=== PATIENT | male | born 1955 | race Caucasian/White ===

== ENCOUNTER 2019-12-26 19:40 | Emergency (ER) | payer MEDICARE, SELFPAY ==
[2019-12-26 20:06] VITALS: BP 166/71; PULSE 71; RESP 16; TEMP 37; O2SAT 97; BMI 24.7
[2019-12-26 21:47] LABS: Basophils % 0.4 %; Eosinophils # 0.2 10^3/uL (0.0-0.8); Hematocrit 45.1 % (42.0-52.0); Hemoglobin 15.2 g/dL (11.7-16.6); Lymphocytes # 2.4 10^3/uL (0.8-4.8); Lymphocytes % 26.5 %; Mean Corpuscular HGB Conc 33.7 g/dL (30.0-36.0); Mean Corpuscular Hemoglobin 29.5 pg (28.0-34.0); Mean Corpuscular Volume 87.6 fL (80-94); Mean Platelet Volume 11.1 fL (7.4-10.4); Monocytes # 0.9 10^3/uL (0.2-0.9); Monocytes % 9.9 %; Neutrophils # 5.6 10^3/uL (1.8-7.7); Nucleated Red Blood Cells % 0 %; Platelet Count 219 10^3/cmm (130-400); Red Blood Count 5.15 10^6/uL (4.1-5.3); Red Cell Distribution Width 12.6 % (12.1-15.1); White Blood Count 9.1 10^3/uL (4.0-10.0)
[2019-12-26 22:05] LABS: Alanine Aminotransferase 19 U/L (0-41); Albumin Level 4.6 g/dL (3.5-5.2); Alkaline Phosphatase 99 IU/L (40-130); Anion Gap 17.1 (5-19); Aspartate Amino Transferase 21 U/L (0-40); Blood Urea Nitrogen 14 mg/dL (8-23); Calcium 9.9 mg/dL (8.5-10.5); Carbon Dioxide 26 mmol/L (22-29); Chloride 98 mmol/L (98-107); Globulin 3.2 g/dL (1.3-4.6); Glomerular Filtration Rate 67.8 mL/min (90-130); Glucose 122 mg/dL (65-115); Potassium 4.1 mmol/L (3.5-5.1); Sodium 137 mmol/L (136-145); Total Bilirubin 0.3 mg/dL (0.15-1.2); Total Protein 7.8 g/dL (6.6-8.7)
== END 2019-12-26 21:25 | disposition home or self-care (01) ==
PROVIDERS: Nurse Practitioner Family; Emergency Provider Family Medicine; Family Provider Nurse Practitioner Family
DX: R19.5 Other fecal abnormalities (principal); R10.9 Unspecified abdominal pain; Z53.21 Procedure and treatment not carried out due to patient leaving prior to being seen by health care provider
CPT/HCPCS: 80053; 85025; 99281; 99282

== ENCOUNTER → 2020-01-14 10:05 | Outpatient (BNVA) | payer MEDICARE, SELFPAY | PROVIDERS: Family Provider Nurse Practitioner Family; Visit Provider Nurse Practitioner Family | DX: Z87.898 Personal history of other specified conditions (principal); K52.9 Noninfective gastroenteritis and colitis, unspecified; R97.20 Elevated prostate specific antigen [PSA]; Z85.46 Personal history of malignant neoplasm of prostate | CPT/HCPCS: G0103 ==

== ENCOUNTER 2020-01-28 06:23 | Day surgery (SDC) | payer MEDICARE, SELFPAY ==
[2020-01-27 09:49] VITALS: BMI 24.7
[2020-01-28 06:49] VITALS: BP 128/79; PULSE 71; RESP 18; TEMP 36.5; O2SAT 94
[2020-01-28] MEDS: sodium chloride 0.9% 1,000 ML 30 ML (06:52)
--- NOTE | 2020-01-28 07:08 | ANES.PREANE2 ---
Pre-Anesthetic Assessment Pre-Anesthetic Assessment: Height/Weight: Height 1.7 m Weight 71.668 kg Temp Pulse Resp BP Pulse Ox 97.7 F 71 18 128/79 94 01/28/20 06:49 01/28/20 06:49 01/28/20 06:49 01/28/20 06:49 01/28/20 06:49 Preop Diagnosis: Stricture descending colon/abnormal CT Proposed Procedure: Operation Date: 01/28/20 08:00 Proposed Procedures p Colonoscopy 93266 K63.9(Not Applicable) - Tono Tello MD Familial anesthetic complications: denies Was Beta Miguel Angel taken within 24 hours: N/A Last intake: Intake Last Liquid Date 01/28/20 Last Liquid Time 05:00 Last Solid Date 01/27/20 Last Solid Time 12:00 Last Intake: 05:30 (black coffee) Social: Social History: Tobacco (1.5 ppd) Exam: Pre-Anes Outpt Exam: alert, oriented x 3, clear to auscultation bilaterally and regular rate & rhythm Airway: Submandibular: WNL Cervical ROM: WNL MP: 2 Dentition: False History/ROS: No significant history except as noted Pulmonary: Pulmonary: None reported CV/HEM: CV/HEM: None reported : : None reported Hepatic: Hepatic: None reported GI: GI: None reported Metabolic: Metabolic: Hyperlipidemia Musc/skel: Musc/skel: None reported Neuropsych: Neuropsych: None reported Anesthetic Plan: ASA status: 2 Anesthesia: Anesthesia Evaluation and MAC Risk of > 500 ml blood loss (7ml/kg in children): No PFSH Anesthesia PFSH: Social History Smoking and tobacco status: current every day smoker Data Anesthesia Cardiac Studies: No Data to Display
[2020-01-28 09:53] VITALS: BP 108/71; PULSE 60; RESP 16; TEMP 36.7; O2SAT 97
--- NOTE | 2020-01-28 09:57 | ANE.PACU2 ---
 Inpatient post-anesthesia follow up: Airway intact: Yes Vital signs: Temperature 97.7 F Pulse Rate 71 Respiratory Rate 18 Blood Pressure 128/79 Pulse Oximetry 94 Oxygen Delivery Me thod Room Air Oxygen Flow Rate Fraction of Inspir ed Oxygen Hydration adequate: Yes Nausea and vomiting: No Mental status: Baseline
[2020-01-28 10:08] VITALS: BP 114/74; PULSE 62; RESP 18; TEMP 36.7; O2SAT 97
--- NOTE | 2020-02-06 10:23 | W.PM.OPSUD ---
Surgery/Procedure H&P Update DATE OF PROCEDURE: January 28, 2020 DATE H&P PERFORMED: 01/26/20 H&P UPDATE INFORMATION: I have reviewed H&P completed within last 30 days, I have examined patient prior to procedure and No changes to prior documentation PREOP DIAGNOSIS: Stricture descending colon/abnormal CT PLANNED PROCEDURE: Operation Date: 01/28/20 08:00 Proposed Procedures p Colonoscopy 91876 K63.9(Not Applicable) - Tono Tello MD
== END 2020-01-28 10:35 | disposition home or self-care (01) ==
PROVIDERS: Family Provider Nurse Practitioner Family; PCP Nurse Practitioner Family; Visit Provider Surgery
PROC: 0DJD8ZZ Inspection of Lower Intestinal Tract, Via Natural or Artificial Opening Endoscopic (ICD-10-PCS; CPT 45378; principal; 2020-01-28 08:00)
DX: K56.699 Other intestinal obstruction unspecified as to partial versus complete obstruction (principal); K63.9 Disease of intestine, unspecified; F17.210 Nicotine dependence, cigarettes, uncomplicated; K64.8 Other hemorrhoids; E78.5 Hyperlipidemia, unspecified
CPT/HCPCS: 12345; 45378; J2704; J7030

== ENCOUNTER → 2021-07-28 10:15 | Outpatient (BNVA) | payer MEDICARE, SELFPAY | PROVIDERS: Family Provider Nurse Practitioner Family; PCP Nurse Practitioner Family; Visit Provider Nurse Practitioner Family | DX: E78.5 Hyperlipidemia, unspecified (principal); R07.89 Other chest pain; R55 Syncope and collapse | CPT/HCPCS: 80053; 80061 ==

== ENCOUNTER → 2022-05-30 09:14 | Outpatient (BNVA) | payer MEDICARE, SELFPAY | PROVIDERS: Family Provider Nurse Practitioner Family; PCP Nurse Practitioner Family; Visit Provider Nurse Practitioner Family | DX: R53.83 Other fatigue (principal); R42 Dizziness and giddiness; E78.5 Hyperlipidemia, unspecified | CPT/HCPCS: 80053; 80061; 85007; 85027 ==

== ENCOUNTER 2022-06-04 06:55 | Outpatient (CLI) | payer MEDICARE, MEDICAID, SELFPAY ==
--- NOTE | 2022-06-04 07:45 | USCV_ITS ---
Fausto Hahn Age: 66 Gender: M : 1955 Exam Date: 06/04/2022 07:06 Ordering Phys: Katie Hahn-Joan CLEMENT Technologist: ANGEL LUIS Exam Location: [facility] – [place] Indication: RIGHT SIDED EYE PAIN Risk Factors: Previous Vascular Surgery: Right Brachial BP: / Left Brachial BP: / Right Left Velocity (cm/s) Spectral Plaque Velocity (cm/s) Spectral Plaque Syst/Diast Broadening Syst/Diast Broadening 114.70/19.80 Prox CCA 132.30/ 22.10 88.20/ 27.60 Mid CCA 114.70/ 26.50 73.90/ 18.70 Distal CCA 72.60 / 21.40 72.80/ 35.30 Prox ICA 83.80 / 26.50 93.20/ 20.20 Mid ICA 98.10 / 35.30 99.00/ 35.60 Distal ICA 101.40/ 36.40 379.10 ECA 104.70 0.86 ICA/CCA 0.77 Antegrade Vertebral Antegrade 92.60/ 20.90 cm/s 81.60/ 17.60 cm/s Tri Subclavian Tri 116.9 181.8 0 0 FINDINGS Comparison: none available. No significant elevation of systolic or diastolic velocities. Waveforms are normal. Mild irregular plaque in the bifurcations. Antegrade vertebral arteries. CONCLUSIONS Bilateral ICA stenosis less than 50%. Mild carotid atherosclerosis. Dr. Dasia Corbett DO (Electronically Signed) Final Date: 04 June 2022 07:45 S
== END 2022-06-04 06:56 | disposition home or self-care (01) ==
LOC: RAD 06:57
PROVIDERS: PCP Nurse Practitioner Family; Visit Provider Nurse Practitioner Family
DX: R09.89 Other specified symptoms and signs involving the circulatory and respiratory systems (principal); H57.11 Ocular pain, right eye; I65.23 Occlusion and stenosis of bilateral carotid arteries
CPT/HCPCS: 93880

== ENCOUNTER 2022-06-21 08:37 | Outpatient (CLI) | payer MEDICARE, MEDICAID, SELFPAY ==
--- NOTE | 2022-06-21 08:30 | CT_ITS ---
WS: [id number] CT HEAD TECHNIQUE: Noncontrast CT of the head obtained from the skullbase to the vertex. CLINICAL INFORMATION: R51.9 - Headache, unspecified COMPARISON: None. DLP: 944.[address] scans at [facility] use at least one of these dose optimization techniques: automated e xposure control; mA and/or kV adjustment per patient size (includes targeted exams where dose is matc hed to clinical indication); or iterative reconstruction. FINDINGS: No evidence of intracranial hemorrhage or mass effect. Ventricular system and basal cisterns are morin nt. Moderate small vessel changes with mild parenchymal volume loss. No extra-axial fluid collections . No evidence of mass or mass effect. Intracranial vascular calcification. Paranasal sinuses and mastoid air cells are well aerated. .Normal visualized soft tissues. CT/CT head wo con* [id number] IMPRESSION: 1. No evidence of intracranial hemorrhage or mass effect. 2. Moderate small vessel changes. Mild parenchymal volume loss. 3. Intracranial vascular calcification. 4. No acute intracranial findings.
== END 2022-06-21 08:38 | disposition home or self-care (01) ==
LOC: RAD 08:38
PROVIDERS: PCP Nurse Practitioner Family; Visit Provider Nurse Practitioner Family
DX: R51.9 Headache, unspecified (principal)
CPT/HCPCS: 70450

== ENCOUNTER → 2022-07-12 13:01 | Outpatient (BNVA) | payer MEDICARE, MEDICAID, SELFPAY | PROVIDERS: PCP Nurse Practitioner Family; Referring Provider Nurse Practitioner Family; Visit Provider Thoracic Surgery (Cardiothoracic Vascular Surgery) | DX: I65.29 Occlusion and stenosis of unspecified carotid artery (principal); R06.02 Shortness of breath; R07.9 Chest pain, unspecified; F17.210 Nicotine dependence, cigarettes, uncomplicated | CPT/HCPCS: 93005; 99203 ==

== ENCOUNTER 2022-08-24 11:27 | Outpatient (CLI) | payer MEDICARE, MEDICAID, SELFPAY ==
--- NOTE | 2022-08-24 11:45 | USCV_ITS ---
Fausto Hahn Age: 67 Gender: M : 1955 Exam Date: 08/24/2022 11:37 Ordering Phys: Pascual Menezes MD (Andy) ([email or web address]) Technologist: Claude Hernandez Exam Location: [facility] [place] Indication: bradycardia BP: 125 / 73 HR: 60 Rhythm: Sinus Technical Quality: Adequate MEASUREMENTS (Male / Female) Normal Values 2D ECHO LV Diastolic Diameter PLAX 3.6 cm 4.2 - 5.9 / 3.9 - 5.3 cm LV Systolic Diameter PLAX 2.6 cm IVS Diastolic Thickness 1.2 cm 0.6 - 1.0 / 0.6 - 0.9 cm IVS Systolic Thickness 1.6 cm LVPW Diastolic Thickness 1.2 cm 0.6 - 1.0 / 0.6 - 0.9 cm LVPW Systolic Thickness 1.3 cm LVOT Diameter 2.0 cm LV Ejection Fraction 2D Teich 56.9 % LV Ejection Fraction MOD 2C 63.2 % LV Ejection Fraction 2C AL 63.9 % LA Diameter 3.0 cm Aorta at Sinotubular Diameter 2.7 cm M-MODE Aortic Annulus Diameter 3.1 cm LA Ao Ratio MM 1.0 MV E Point Septal Separation 0.7 cm DOPPLER AV Peak Velocity 203.8 cm/s LVOT Peak Velocity 98.0 cm/s AV Area Cont Eq vti 1.6 cm squared AV Area Cont Eq pk 1.5 cm squared MV Area PHT 5.0 cm squared Mitral E to A Ratio 0.9 MV E' Velocity 43.5 cm/s Mitral E to MV E' Ratio 7.1 Mitral E to LV E' Lateral Ratio 6.8 Mitral E to LV E' Septal Ratio 7.4 TR Peak Velocity 160.0 cm/s TR Peak Gradient 10.2 mmHg TV Peak E Velocity 95.0 cm/s Right Atrial Pressure 3.0 mmHg Pulmonary Artery Systolic Pressu 13.2 mmHg PV Peak Velocity 61.7 cm/s FINDINGS Left Ventricle LV is normal in size. LV systolic function is normal with EF 55 to 60%. No regional wall motion abnormalities are seen. Diastolic function is normal Right Ventricle Normal in size and function Right Atrium Normal in size Left Atrium Normal in size Mitral Valve Structurally normal mitral valve. Mild mitral regurgitation. Aortic Valve Aortic valve is thickened. No significant stenosis or regurgitation is seen. Tricuspid Valve Trace tricuspid regurgitation. Insufficient TR jet to calculate RVSP Pulmonic Valve Not well-visualized Pericardium Normal Aorta Normal in size IVC Not well-visualized CONCLUSIONS LV systolic function is normal with EF of 55 to 60%. Diastolic function is normal Mild mitral regurgitation Trace tricuspid regurgitation. No comparison studies are available Shaheen Martinez MD (Electronically Signed) Final Date: 30 August 2022 18:44 S
== END 2022-08-24 11:28 | disposition home or self-care (01) ==
LOC: RAD 11:29
PROVIDERS: PCP Nurse Practitioner Family; Visit Provider Thoracic Surgery (Cardiothoracic Vascular Surgery)
DX: R06.02 Shortness of breath (principal); R00.1 Bradycardia, unspecified; I08.1 Rheumatic disorders of both mitral and tricuspid valves
CPT/HCPCS: 93306

== ENCOUNTER 2022-09-07 17:08 | Emergency (ER) | payer MEDICARE, MEDICAID, SELFPAY ==
[2022-09-07 17:11] VITALS: BP 162/67; PULSE 59; RESP 16; TEMP 36.2; O2SAT 96; BMI 23.8
--- NOTE | 2022-09-07 17:12 | ECG_ITS ---
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 Measurements Intervals [place] Rate: 59 P: -72 NE: 146 QRS: 57 QRSD: 90 T: 49 QT: 412 QTc: 411 Interpretive Statements ECTOPIC ATRIAL BRADYCARDIA POSSIBLE RIGHT VENTRICULAR CONDUCTION DELAY [RSR (QR) IN V1/V2] ABNORMAL RHYTHM ECG Compared to ECG 06/14/2018 00:30:52 Bradycardia, nonsinus now present Ectopic atrial rhythm no longer present Early repolarization no longer present Electronically Signed On 09-07-2022 17:39:14 CDT by Yeny Whiteside M.D. [id number] ofelia
--- NOTE | 2022-09-07 17:12 | XRR_ITS ---
PROCEDURE INFORMATION: Exam: XR Chest Exam date and time: 09/07/2022 5:15 PM Age: 67 years old Clinical indication: Cough; Additional info: Dyspnea/cough TECHNIQUE: Imaging protocol: Radiologic exam of the chest. Views: 1 view. COMPARISON: CR XR chest 1V [id number] 06/13/2018 9:46 PM FINDINGS: Lungs: Stable COPD . Pleural spaces: Unremarkable. No pleural effusion. No pneumothorax. Heart/Mediastinum: Unremarkable. No cardiomegaly. Bones/joints: Unremarkable. XR/XR chest 1V portable [id number] IMPRESSION: Stable COPD .
--- NOTE | 2022-09-07 17:13 | ED_ITS ---
Documented by User: Kaden Flores DO 09/19/22 07:47 HPI - Syncope General: Chief Complaint: Syncope Stated Complaint: syncope Time Seen by Provider: 09/07/22 17:12 Source: patient Mode of arrival: EMS History of Present Illness: 67-year-old male presents emergency room via EMS after syncopal episode while on the toilet. Patient cannot recall if he was having a Valsalva maneuver or a just stood he passed out and does not remember a period of time. He is not on any anticoagulants. Patient has a history of previous near syncopal episodes has had a work-up for he says been going on for almost 2 years did not really find a cause. She is supposed to be going to see the medical secretary receptionist. He does have some carotid stenosis but it was less than 50% of his baseline ultrasound done in May of this year. But has not previously been known to have a stroke. He has no chest or abdominal pain no history of coronary artery disease. No previous cardiac evaluation. There is no evidence of head trauma patient denies any head pain. No loss of bowel or bladder control. MD complaint: loss of consciousness Onset (ago): minute(s) Prodromal symptoms: none Witnessed: Yes - by Bystander Injuries sustained associated with event: none Associated symptoms: Deny abdominal pain, chest pain, fever(s), headache(s), lightheadedness, nausea, short of breath, vertigo or weakness Treatments prior to arrival: none Review of Systems Const: Denies: fever(s), chills, fatigue or malaise ENMT: Denies: throat pain, ear or mastoid pain, nasal discharge or nasal congestion Card: Denies: chest pain or lightheadedness Resp: Denies: dyspnea, productive cough or non-productive cough GI: Denies: abdominal pain or nausea : Denies: flank pain, difficulty urinating, dysuria, urinary frequency or urinary urgency Skin/Breast: Denies: rash or pruritus Neuro: Denies: headache(s) or vertigo PFSH ED PFSH: Medical History Cervical radiculopathy History of colon polyps History of facial trauma Intervertebral disc extrusion Smoker Surgical History H/O shoulder surgery History of colonoscopy with polypectomy (~03/19/20) Repeat in 5 years since he had polyps on his colonoscopy from last year Family History Mother Diabetes Father CAD (coronary artery disease) Sister Thyroid disease Social History Smoking and tobacco status: current every day smoker cigarettes Packs smoked per day: 1.5 Years cigarettes smoked: 55 Alcohol intake: never Lives independently: Yes Household members: spouse Housing: House Marital status: Number of children: 2 Pets and animals: Yes Pets & animals: dog(s) Physical Exam Const: COMMON NORMALS: no acute distress GENERAL APPEARANCE: cooperative and comfortable ORIENTATION/CONSCIOUSNESS: Yes awake, Yes oriented to person, Yes oriented to place and Yes oriented to time HENMT: COMMON NORMALS: normocephalic, atraumatic, hearing grossly normal bilaterally, external ears normal, EAC's normal, TM's normal bilaterally, Normal nasal mucous membranes and turbinates present, moist oral mucous membranes and oropharynx normal HEAD & SCALP: normocephalic and atraumatic NOSE: Normal nasal mucous membranes and turbinates present EXTERNAL EAR: Yes external ears normal EXTERNAL AUDITORY CANAL: EAC's normal TYMPANIC MEMBRANE: TM's normal bilaterally Eye: COMMON NORMALS: Equal, round and reactive pupils present, EOMs intact bilaterally, conjunctivae normal and no scleral icterus CONJUNCTIVA: Yes conjunctivae normal PUPIL: Yes Equal, round and reactive pupils present Resp: COMMON NORMALS: normal respiratory effort, No retractions, No use of accessory muscles and clear to auscultation bilaterally AUSCULTATION: clear to auscultation bilaterally Cardio: COMMON NORMALS: regular rate, regular rhythm and No murmurs present (Cardio) RATE: regular rate RHYTHM: regular rhythm GI: COMMON NORMALS: Soft to palpation and No hepatosplenomegaly present AUSCULTATION: Yes normoactive bowel sounds PALPATION: Yes Soft to palpation, No Tenderness to palpation present (GI), No Guarding due to palpation present (GI) and Yes No hepatosplenomegaly present Extremity: COMMON NORMALS: normal to inspection, capillary refill normal, no clubbing, cyanosis or edema, no calf tenderness and no pedal edema Neuro: SENSORIUM/ORIENTATION: Yes oriented to person, Yes oriented to place and Yes oriented to time Skin: COMMON NORMALS: no rashes or lesions noted GENERAL SKIN EXAM: no rashes or lesions noted Course Vital Signs: Vital signs: Vital Signs Temperature 97.1 F L 09/07/22 17:11 Pulse Rate 69 09/07/22 20:27 Respiratory Rate 16 09/07/22 20:27 Blood Pressure 133/71 09/07/22 20:27 Pulse Oximetry 96 09/07/22 20:27 Oxygen Delivery Me thod 09/07/22 17:11 MDM - Syncope Medical Decision Making Care signed out to Dr. Jorgensen at change of shift. See final notes for diagnosis and disposition. 67-year-old gentleman received in checkout from Dr. Everett. This gentleman had a syncopal episode on the toilet. He never had any chest pain. His white blood cell count is 12. Hemoglobin is 15. BMP is not remarkable. His EKG shows sinus bradycardia with some J-point elevation diffusely. No alarming ST elevation. No Q waves. Troy is normal rate is 55. Patient's rates been 55 in the monitor. Blood pressure is normal 120/69. Saturations 95% respirations 15. His carotid disease is less than 50%. He has a 55% ejection fraction on echo a couple of weeks ago with no pericardial effusion or other abnormality. He has a work-up in progress for this with his history of syncopal/presyncopal episodes. Troponin did not elevated 2 hours. He had a Holter last year. Medical Records I reviewed the patient's medical records. Lab Data I reviewed the patient's lab results. : 09/07/22 18:08 09/07/22 18:08 Radiology Impressions Chest X-Ray 09/07/22 17:12 IMPRESSION: Stable COPD . Laboratory Results WBC 12.3 10^3/uL (4.0-10.0) H 09/07/22 18:08 RBC 4.79 10^6/uL (4.1-5.3) 09/07/22 18:08 Hgb 15.2 g/dL (11.7-16.6) 09/07/22 18:08 Hct 43.0 % (42.0-52.0) 09/07/22 18:08 MCV 89.8 fl (80-94) 09/07/22 18:08 MCH 31.7 pg (28.0-34.0) 09/07/22 18:08 MCHC 35.3 g/dL (30.0-36.0) 09/07/22 18:08 RDW 12.1 % (12.1-15.1) 09/07/22 18:08 Plt Count 223 10^3/cmm (130-400) 09/07/22 18:08 MPV 11.5 fL (7.4-10.4) H 09/07/22 18:08 Neut % (Auto) 78.9 % 09/07/22 18:08 Lymph % (Auto) 10.6 % 09/07/22 18:08 Swift % (Auto) 7.9 % 09/07/22 18:08 Eos % (Auto) 1.9 % 09/07/22 18:08 Baso % (Auto) 0.5 % 09/07/22 18:08 Neut # (Auto) 9.71 10^3/uL (1.8-7.7) H 09/07/22 18:08 Lymph # (Auto) 1.3 10^3/uL (0.8-4.8) 09/07/22 18:08 Swift # (Auto) 1.0 10^3/uL (0.2-0.9) H 09/07/22 18:08 Eos # (Auto) 0.2 10^3/uL (0.0-0.8) 09/07/22 18:08 Baso # (Auto) 0.1 10^3/uL (0.0-0.1) 09/07/22 18:08 Nucleated RBC % (auto) 0 % 09/07/22 18:08 Nucleated RBCs # 0.0 /100WBC 09/07/22 18:08 Sodium 139 mmol/L (136-145) 09/07/22 18:08 Potassium 3.7 mmol/L (3.5-5.1) 09/07/22 18:08 Chloride 103 mmol/L (98-107) 09/07/22 18:08 Carbon Dioxide 26 mmol/L (22-29) 09/07/22 18:08 Anion Gap 13.7 (5-19) 09/07/22 18:08 BUN 14 mg/dL (8-23) 09/07/22 18:08 Creatinine 1.0 mg/dL (0.7-1.2) 09/07/22 18:08 GFR Calculation 75.0 mL/min (90-130) L 09/07/22 18:08 Glucose 119 mg/dL (65-115) H 09/07/22 18:08 POC Glucose 95 mg/dL (70-110) 09/07/22 17:18 Calculated Osmolality 290 mOsm/kg (285-295) 09/07/22 18:08 Calcium 9.5 mg/dL (8.5-10.5) 09/07/22 18:08 Total Bilirubin 0.3 mg/dL (0.15-1.2) 09/07/22 18:08 AST 21 U/L (0-40) 09/07/22 18:08 ALT 17 U/L (0-41) 09/07/22 18:08 Alkaline Phosphatase 104 U/L (40-130) 09/07/22 18:08 Troponin T Baseline 11 ng/L (0-15) 09/07/22 18:08 Troponin T 120 Minute 10.82 ng/L (0-15) 09/07/22 18:50 Delta Troponin T -0.18 ABS# (0-10) L 09/07/22 18:50 Total Protein 7.7 g/dL (6.6-8.7) 09/07/22 18:08 Albumin 4.3 g/dL (3.5-5.2) 09/07/22 18:08 Globulin 3.4 g/dL (1.3-4.6) 09/07/22 18:08 Discharge Plan Discharge Patient Disposition: Home Clinical Impression: Syncope Condition: Stable Prescriptions: No Action multivitamin Tablet 1 tab PO DAILY melatonin 10 mg capsule 10 mg PO .HS Discharge Orders: Discharge ED (Routine); Ordered 09/07/22 Ordered By: David Jorgensen Referrals: Katie Hahn FNP [Primary Care Provider] - 1-3 days Amberly Chatman MD [Physician] - 4-7 days Patient Instructions: Syncope (ED) Activity Restrictions/Additional Instructions: Return for chest discomfort, shortness of breath, repeated episodes of syncope or passing out, worsening mental status, other concerning symptoms. Call your doctor on Saturday. They may want to see you or order more outpatient testing. Coding Level of Care Code ED Manager Automotive for Chg Fwd Exam Comprehensive Documented by User: David Jorgensen DO 09/07/22 20:09 HPI - Syncope General: Chief Complaint: Syncope Stated Complaint: syncope Time Seen by Provider: 09/07/22 17:12 PFSH ED PFSH: Medical History Cervical radiculopathy History of colon polyps History of facial trauma Intervertebral disc extrusion Smoker Surgical History H/O shoulder surgery History of colonoscopy with polypectomy (~01/28/20) Repeat in 5 years since he had polyps on his colonoscopy from last year Family History Mother Diabetes Father CAD (coronary artery disease) Sister Thyroid disease Social History Smoking and tobacco status: current every day smoker cigarettes Packs smoked per day: 1.5 Years cigarettes smoked: 55 Alcohol intake: never Lives independently: Yes Household members: spouse Housing: House Marital status: Number of children: 2 Pets and animals: Yes Pets & animals: dog(s) Course Vital Signs: Vital signs: Vital Signs Temperature 97.1 F L 09/07/22 17:11 Pulse Rate 69 09/07/22 20:27 Respiratory Rate 16 09/07/22 20:27 Blood Pressure 133/71 09/07/22 20:27 Pulse Oximetry 96 09/07/22 20:27 Oxygen Delivery Me thod 09/07/22 17:11 MDM - Syncope Medical Decision Making 67-year-old gentleman received in checkout from Dr. Everett. This gentleman had a syncopal episode on the toilet. He never had any chest pain. His white blood cell count is 12. Hemoglobin is 15. BMP is not remarkable. His EKG shows sinus bradycardia with some J-point elevation diffusely. No alarming ST elevation. No Q waves. Troy is normal rate is 55. Patient's rates been 55 in the monitor. Blood pressure is normal 120/69. Saturations 95% respirations 15. His carotid disease is less than 50%. He has a 55% ejection fraction on echo a couple of weeks ago with no pericardial effusion or other abnormality. He has a work-up in progress for this with his history of syncopal/presyncopal episodes. Troponin did not elevated 2 hours. He had a Holter last year. Lab Data : 09/07/22 18:08 09/07/22 18:08 Radiology Impressions Chest X-Ray 09/07/22 17:12
[2022-09-07 17:23] LABS: Glucose Point of Care 95 mg/dL (70-110)
[2022-09-07 17:35] VITALS: BP 113/65; BP 118/67; BP 143/68; PULSE 56; PULSE 60; PULSE 64
[2022-09-07 18:07] VITALS: BP 122/71; PULSE 66; RESP 16; O2SAT 98
[2022-09-07 18:16] LABS: Basophils # 0.1 10^3/uL (0.0-0.1); Basophils % 0.5 %; Eosinophils # 0.2 10^3/uL (0.0-0.8); Eosinophils % 1.9 %; Hemoglobin 15.2 g/dL (11.7-16.6); Lymphocytes # 1.3 10^3/uL (0.8-4.8); Lymphocytes % 10.6 %; Mean Corpuscular HGB Conc 35.3 g/dL (30.0-36.0); Mean Corpuscular Hemoglobin 31.7 pg (28.0-34.0); Mean Corpuscular Volume 89.8 fl (80-94); Mean Platelet Volume 11.5 fL (7.4-10.4); Monocytes % 7.9 %; Neutrophils # 9.71 10^3/uL (1.8-7.7); Neutrophils % 78.9 %; Nucleated Red Blood Cells % 0 %; Platelet Count 223 10^3/cmm (130-400); Red Blood Count 4.79 10^6/uL (4.1-5.3); Red Cell Distribution Width 12.1 % (12.1-15.1); White Blood Count 12.3 10^3/uL (4.0-10.0)
[2022-09-07 18:36] LABS: Troponin(5th) Baseline 11 ng/L (0-15)
[2022-09-07 18:38] LABS: Alanine Aminotransferase 17 U/L (0-41); Albumin Level 4.3 g/dL (3.5-5.2); Alkaline Phosphatase 104 U/L (40-130); Anion Gap 13.7 (5-19); Aspartate Amino Transferase 21 U/L (0-40); Blood Urea Nitrogen 14 mg/dL (8-23); Calcium 9.5 mg/dL (8.5-10.5); Carbon Dioxide 26 mmol/L (22-29); Chloride 103 mmol/L (98-107); Globulin 3.4 g/dL (1.3-4.6); Glucose 119 mg/dL (65-115); Osmolality Calculated 290 mOsm/kg (285-295); Potassium 3.7 mmol/L (3.5-5.1); Sodium 139 mmol/L (136-145); Total Bilirubin 0.3 mg/dL (0.15-1.2); Total Protein 7.7 g/dL (6.6-8.7)
--- NOTE | 2022-09-07 19:33 | ECG_ITS ---
[facility] Test Date: 2022-09-07 Pat Name: Fausto Hahn Department: Room: Gender: Male Service Porter: : 1955 Requested By: Kaden Mirza Order Number: [id number] Reading MD: Yeny Whiteside M.D. Measurements Intervals [place] Rate: 53 P: 1 MS: 129 QRS: 39 QRSD: 90 T: 26 QT: 413 QTc: 390 Interpretive Statements SINUS BRADYCARDIA WITH OCCASIONAL SUPRAVENTRICULAR PREMATURE COMPLEXES POSSIBLE RIGHT VENTRICULAR CONDUCTION DELAY [RSR (QR) IN V1/V2] Compared to ECG 09/07/2022 17:12:46 Bradycardia, nonsinus no longer present Electronically Signed On 09-07-2022 19:35:21 CDT by Yeny Whiteside M.D. [id number]
[2022-09-07 19:34] LABS: Troponin 5 2HR 10.82 ng/L (0-15)
[2022-09-07 19:52] LABS: Troponin 5 2HR Delta -0.18 ABS# (0-10)
[2022-09-07 20:27] VITALS: BP 133/71; PULSE 69; RESP 16; O2SAT 96
== END 2022-09-07 20:28 | disposition home or self-care (01) ==
PROVIDERS: Family Medicine; Emergency Provider Emergency Medicine; PCP Nurse Practitioner Family
DX: R55 Syncope and collapse (principal); F17.210 Nicotine dependence, cigarettes, uncomplicated
CPT/HCPCS: 36415; 36416; 71045; 80053; 82962; 84484; 85025; 93005; 99285

== ENCOUNTER → 2022-09-13 09:39 | Outpatient (BNVA) | payer MEDICARE, MEDICAID, SELFPAY | PROVIDERS: PCP Nurse Practitioner Family; Visit Provider Internal Medicine Cardiovascular Disease | DX: R07.9 Chest pain, unspecified (principal); R06.02 Shortness of breath; R55 Syncope and collapse; F17.210 Nicotine dependence, cigarettes, uncomplicated | CPT/HCPCS: 99204 ==

== ENCOUNTER 2022-10-26 08:50 | Outpatient (CLI) | payer MEDICARE, MEDICAID, SELFPAY ==
[2022-10-26 09:57] VITALS: BMI 22.8
--- NOTE | 2022-10-26 09:59 | ECG_ITS ---
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 Interpretive Statements NAME OF STUDY: LEXISCAN SESTAMIBI STRESS TEST INDICATION: Exertional shortness of breath, chest pain PROCEDURE: At the baseline, the blood pressure was 127/71 mmHg with a heart rate of 62 bpm. The electrocardiogram showed sinus rhythm, normal axis with normal ST-T's. Patient exercised for 3 minutes 4 seconds and reached 54% of maximum predicted heart rate at 85 bpm and got into injected with Lexiscan. The Lexiscan was infused over a period of 20 seconds. A total of 0.4 milligrams of Lexiscan was infused. The stress phase was continued for a total of 5 minutes. Heart rate at the end of the stress phase was 85 bpm with a blood pressure of 179/89 mmHg. The EKG at the peak infusion revealed no significant ST-T wave changes. Sestamibi was injected 20 seconds after the Lexiscan infusion. Blood pressure at the end of the recovery phase was 124/57 mmHg with a heart rate of 65 beats per minute. CONCLUSION: 1. No significant EKG changes with the LexiScan infusion. 2. No LexiScan induced chest pain or cardiac arrhythmia. 3. Decreased exercise tolerance and patient did not reach target heart rate. Test was changed to Lexiscan. Normal blood pressure and heart rate response. 4. Sestamibi/sestamibi perfusion scan pending; see separate report. Electronically Signed On 10-30-2022 16:09:50 LINE DRIVER by Yeny Whiteside M.D. [id number]
--- NOTE | 2022-10-26 10:00 | NMCV_ITS ---
NM aydee perf SPECT r/s* [id number] Fausto aHhn Age: 67 Gender: M : 1955 Exam Date: 10/26/2022 10:41 Ordering Phys: Yeny Whiteside MD ([email or web address]) Technologist: SHAILA Chavez Exam Location: [facility] Indications: SOB STRESS TEST Please see separate stress test report in [facility] for full findings IMAGE PROTOCOL Rest/Stress 1 isc Radiopharmaceutical Dose (mCi) Administration Site Administered by Rest: Tc-99m 10.8 IV SHAILA Chavez Sestamibi Stress:Tc-99m 32.4 IV SHAILA Chavez Sestamibi Rest: 26-Oct-2022 60 Discovery 630 Stress: 26-Oct-2022 60 Bug Music 630 SPECT RESULTS Technical Quality: Good Raw Data Analysis: Normal Image Corrections: No attenuation or motion correction applied Summed Stress Score: 11 Summed Rest Score: 1 Summed Difference Score: 10 PERFUSION FINDINGS Medium sized reversible perfusion abnormality of moderate severity of basal to apical inferior, mid inferoseptal, apical septal and apical murdock. FUNCTIONAL RESULTS (calculated via Gated SPECT) Stress Image LV EF (%): 62 Stress EDV (mL):102 TID: 1.08 Stress ESV (mL):39 FUNCTIONAL FINDINGS: The left ventricle is normal in size. Transient Ischemia Dilatation of 1.1. The left ventricular ejection fraction is normal with a value of 62%. There seems to be hypokinesis of inferior wall. IMPRESSIONS 1. Medium sized reversible perfusion abnormality of moderate severity of basal to apical inferior, mid inferoseptal, apical septal and apical murdock. 2. This is suggestive of moderate area of ischemia in right coronary artery territory. 3. The left ventricular ejection fraction is normal with a value of 62%. There seems to be hypokinesis of inferior wall. 4. EKG portion of the study will be reported separately. Yeny Whiteside MD (Electronically Signed) Final Date: 29 October 2022 15:17 S
[2022-10-26] MEDS: regadenoson 0.4 Mg/5 ml Syringe IVP (11:23)
--- NOTE | 2022-10-26 11:23 | PC.NURSE ---
pt not able to hit target after 6 mns. pt stated he is no longer able to continue. per dr verbal order, lexiscan will be ordered.
[2022-10-26 12:53] VITALS: BP 124/57; PULSE 65
== END 2022-10-26 08:51 | disposition home or self-care (01) ==
LOC: CDL 08:52
PROVIDERS: PCP Nurse Practitioner Family; Visit Provider Internal Medicine Cardiovascular Disease
DX: R06.02 Shortness of breath (principal); R07.9 Chest pain, unspecified
CPT/HCPCS: 36415; 78452; 93017; 96374; A9500; J2785

== ENCOUNTER → 2022-11-06 09:28 | Outpatient (BNVA) | payer MEDICARE, SELFPAY | PROVIDERS: PCP Nurse Practitioner Family; Visit Provider Internal Medicine Cardiovascular Disease | DX: R06.02 Shortness of breath (principal); R94.39 Abnormal result of other cardiovascular function study | CPT/HCPCS: 80048; 85025; 85610 ==

== ENCOUNTER 2022-11-09 05:54 | Outpatient (CLI) | payer MEDICARE, MEDICAID, SELFPAY ==
[2022-11-09] VITALS (19 sets, daily range): BP systolic 126–159; BP diastolic 65–98; PULSE 49–79; RESP 10–21; TEMP 36.6; O2SAT 94–98; BMI 22.8
--- NOTE | 2022-11-09 06:00 | XACV_ITS ---
Ht: 173 cm Wt: 68 kg BSA: 1.81 m2 Gender: Male : 1955 Any Known Allergies: Novacaine Exam Priority: Routine Indication(s): - Abnormal stress perfusion study Procedure(s): Procedure Description: Diagnostic procedure Procedure Description: Coronary Angiography Diagnostic Cath Status: Elective Diagnostic Findings * 67 year old male was seen for evaluation and treatment of exertional shortness of breath, sweating and syncopal episode. He has been smoking 1 and 1/2 PPD x last 55 years. Father with massive stroke at age 49, older brother with bypass sx and valve sx and stroke in his 70's. Paternal uncle with bypass sx. Stress test showed medium sized reversible perfusion abnormality of moderate severity of basal to apical inferior, mid inferoseptal, apical septal and apical murdock suggestive of moderate area of ischemia in right coronary artery territory.. * Angiography shows a co-dominant system. * Short left main with no significant stenosis. * Small to medium calibre left anterior descending artery. Proximal segment with 60% stenosis and mid segment with 90% stenosis. * Small calibre circumflex artery with ostial 95% stenosis. LPDA segment very small and fills via left to left collaterals. * Medium calibre right coronary artery with mid right coronary artery 99% stenosis. YUN-3 flow. Conclusions 1. Severe multivessel coronary artery disease. Recommendations * Return to inpatient for close monitoring and routine cath care. * Statin and aspirin 81mg lifelong, if tolerated. * Plan to refer patient for coronary artery bypass surgery. Pressures Phase:Rest AO : / ( 0 ) @ 7:36:00 AM 125 / 60 ( 83 ) @ 7:42:00 AM 107 / 58 ( 80 ) @ 7:44:00 AM 108 / 61 ( 81 ) @ 7:45:00 AM 107 / 56 ( 76 ) @ 7:48:00 AM / ( -16 ) @ 7:54:00 AM 118 / 52 ( 75 ) @ 7:56:00 AM 201 / 46 ( 78 ) @ 7:56:00 AM 69 / 52 ( 55 ) @ 7:59:00 AM 44 / -19 ( -33 ) @ 8:00:00 AM 101 / 46 ( 59 ) @ 8:00:00 AM 115 / 49 ( 74 ) @ 8:01:00 AM 100 / 47 ( 59 ) @ 8:01:00 AM 127 / 48 ( 77 ) @ 8:02:00 AM 125 / 51 ( 76 ) @ 8:02:00 AM 118 / 52 ( 75 ) @ 8:06:00 AM 108 / 55 ( 77 ) @ 8:06:00 AM 49 / 34 ( 37 ) @ 8:07:00 AM 54 / 35 ( 41 ) @ 8:07:00 AM 170 / 44 ( 71 ) @ 8:07:00 AM 120 / 53 ( 79 ) @ 8:07:00 AM 112 / 50 ( 74 ) @ 8:08:00 AM Clinical Evaluation EBL: 5mL-10mL Procedural Details Procedure Consent Obtained. Admit Source: Out Patient. Pre-Procedure Time Out. Identified patient by full name and date of as verbalized by the patient/guarantor. Does the consent match the physician's order: Yes. Accurate & Complete Informed Consent: Yes. Inpatient/Outpatient History & Physical on Chart: Yes. If H&P is completed, is and addenduem needed: No; If yes, is the addendum complete: N/A. Visualize and Verify Site with Patient/Guarantor: N/A. Relevant Radiology Images available: N/A. The risks, benefits, and alternatives of sedation and/or procedure were discussed by physician. The patient agrees to continue. Procedure started. [facility] Clinical Fraility Score: 3: Managing Well. 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 Railroad Mechanic Indications: Suspected CAD. Chest Pain Symptom Assessment: Atypical Angina. Cardiovascular Instability: No, Stable. Correct patient, site and procedure confirmed by cath team. Current diagnosis: Chest Pain; Abnormal Stress Test. PERRLA. 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 Lungs clear x 5 lobes. IV Site on Arrival: 18 gauge in the right anticubital. IV Fluids: 0.9% NaCl at KVO. 0 mL infused prior to picket [employer]. Pre Procedural Pulses: bilateral posterior tibial was 1+. Pre Procedural Pulses: bilateral dorsalis pedis was 1+. Pre Procedural Pulses: bilateral radial was 3+. Oxygen started at 3liters/min via nasal canula. right groin was prepped with chloroprep then draped in the usual sterile fashion. right radial was prepped with chloroprep then draped in the usual sterile fashion. Baseline sample Acquired. HR: 54 BPM. Physician notified. Physician arrived. Family updated by MD prior to the start of the procedure. Equipment: 5F - Radial. Equipment: 6F - Radial. Cardiac Cath Pack. ACBetter Bean Manifold Kit Model BT 2000. Heparinized Saline (2 units/mL), 1000 mL bag. Physician scrubbed in. Immediate Pre-Procedure Time Out. Correct Patient: Yes; Correct Procedure: Yes; Correct Site: Yes; Correct Patient Position: Yes; Correct Supplies: Yes; Dried Flammable Prep: Yes; Blood Products Available: N/A;. Lidocaine 1% infiltrated to the right radial. Arterial access obtained. A 5 chinese TIG catheter in over wire. Multiple views taken of left coronary artery. Catheter redirected to the RCA. Catheter removed over the exchange wire. A 6 chinese JL4 catheter in over wire. Multiple views taken of left coronary artery. Catheter removed over the exchange wire. A 6 chinese JR4 catheter in over wire. Multiple views taken of right coronary artery. Catheter removed over the exchange wire. Dr Martinez here to review films. Dr Whiteside scrubbed out. Family updated. A TR Band was successful obtaining hemostatsis at the Right Radial artery insertion site. TR band placed. Hemostasis obtained. Post Procedure: Pulses reassessed and unchanged. PERRLA. 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 No VTE prophylaxis required. Medication Waste: Lido- 3 ml, Heparin-1000 units, Fentanyl 50 mcg, Nitro 49.8 mg. Total IV fluids: 57 mL. Fluoro: 11:05. Contrast type used: Omnipaque 300 mg/mL, 150 mL bottle. Omnipaque 134 ml. Post-op diagnosis: Severe Multivessel CAD. Complications: None. Estimated blood loss: 5mL-10mL. Responsiveness - Normal response to verbal stimuli; alert and oriented, PERRLA. Airway - Unaffected, no intervention required; spontaneous ventilation. Circulation: W/N/L, pulses unchanged. Nausea/Vomiting: No. Procedure completed. Patient transferred by wheelchair to CPRU. Vital chart was stopped. Current Diagnosis : Chest Pain. Access Site Site: Right Radial artery Sheath Size: 6 Fr Hemostasis Method: TR Band Hemostasis Success: Successful Procedure Medications Start: 7:32 AM Stop: 7:32 AM Medication: Versed Amount: 1 mg Route: I.V. Start: 7:32 AM Stop: 7:32 AM Medication: Fentanyl Amount: 50 mcg Route: I.V. Start: 7:39 AM Stop: 7:39 AM Medication: Nitrogylcerin Amount: 200 mcg Route: I.A. Start: 7:42 AM Stop: 7:42 AM Medication: Heparin Amount: 5000 units Route: I.V. Start: 7:54 AM Stop: 7:54 AM Medication: Versed Amount: 1 mg Route: I.V. I, the attending physician, have reviewed and verified all procedure medications. Yes, all medications given per verbal order History/Risk Factors Hypertension: No Dyslipidemia: No Peripheral Arterial Disease (PAD): No Myocardial Infarction (CO): No Obesity: No Renal Disease: No Tobacco Use: Current/Recent(w/in 1 year) Prior Interventions PCI: No CABG: No Valve Surgery: No Report Signatures Finalized by Yeny Whiteside MD on 11/12/2022 12:48 PM
[2022-11-09] MEDS: diphenhydrAMINE 50 mg Capsule PO (06:44)
--- NOTE | 2022-11-09 07:28 | P.HP_ITS ---
Same Day Surgery H&P Indication for Procedure/HPI DATE OF PROCEDURE: November 09, 2022 CHIEF COMPLAINT/INDICATIONFOR SURGICAL PROCEDURE: Exertional shortness of breath PREOP DIAGNOSIS: Abnormal stress test, exertional SOB PLANNED PROCEDURE: Operation Date: 11/09/22 07:00 Proposed Procedures p [facility] w/wo 69771 R94.39; SOB R06.02; CP R07.9(Left) - Yeny Whiteside MD 67 year old male here for evaluation and treatment of chest pain. Patient states he never had chest pains but last week he broke out in a sweat and the next thin g he remembers is his waking him up and he was in the floor. He was brought by EMS to our ER. He states he has never passed out before but has had episodes of dizziness. He complains of worsening SOB with exertion. He has been having dizzy spells for last 1-2 years. He has been smoking 1 and 1/2 PPD x last 55 years, massive stroke at age 51, mother with HTN, DM-2. older brother with bypass sx and valve sx, stroke in his 70's. Paternal uncle with bypass sx.? Last stress test more than 5 years ago. EKG showed sinus bradycardia at 53 bpm. Possible RV conduction delay. He underwent stress test that showed medium sized reversible perfusion abnormality of moderate severity of basal to apical inferior, mid inferoseptal, apical septal and apical murdock. This is suggestive of moderate area of ischemia in right coronary artery?territory. Medications/Allergies* Home Medications Medication Instructions Recorded Confirmed Type melatonin 10 mg capsule 10 mg PO .HS 09/13/22 11/09/22 History multivitamin 1 tab PO DAILY 09/13/22 11/09/22 History Allergies/Adverse Reactions Allergy/AdvReac Type Severity Reaction Status Date / Time novacain Allergy ALGY-Hives Uncoded 11/08/22 10:30 Current Medications: Generic Name Dose Route Start Last Admin Trade Name Freq PRN Reason Stop Dose Admin Sodium Chloride 1,000 mls @ 50 mls/hr 11/09/22 06:00 11/09/22 06:45 Sodium Chloride 0.9% IV 11/10/22 01:59 Not Given .Q20H ONE Pertinent History/Comorbid Conditions* Medical History Cervical radiculopathy History of colon polyps History of facial trauma Intervertebral disc extrusion Smoker Surgical History (Updated 01/28/20 @ 09:58 by Tono Tello MD) H/O shoulder surgery History of colonoscopy with polypectomy (~01/28/20) Repeat in 5 years since he had polyps on his colonoscopy from last year Family History (Updated 03/03/20 @ 13:10 by RACQUEL Pearson) Father Mother Diabetes Mother CAD (coronary artery disease) Father Thyroid disease Sister Social History Smoking and tobacco status: current every day smoker cigarettes Packs smoked per day: 1.5 Years cigarettes smoked: 55 Alcohol intake: never Lives independently: Yes Household members: spouse Housing: House Marital status: Number of children: 2 Pets and animals: Yes Pets & animals: dog(s) Pertinent Exam Findings alert, oriented x 3, clear to auscultation bilaterally and regular rate & rhythm Conscious Sedation Assessment PATIENT ASSESSED PRIOR TO SEDATION, WITH NO CHANGE NOTED: Yes AIRWAY EVAL/ANESTHESIA PLAN: normal airway, ASA III, Monitored Anesthesia, Local Anesthesia, Risks, benefits & alternatives of sedation and/or procedure discussed and Patient agrees to continue as planned Recommendations Surgery/Procedure today Coding Level of Care Code Acute Manager Style for Yvan Blanchard
--- NOTE | 2022-11-09 08:23 | USCV_ITS ---
Fausto Hahn Age: 67 Gender: M : 1955 Exam Date: 11/09/2022 08:44 Ordering Phys: Yeny Whiteside MD ([email or web address]) Technologist: Claude Hernandez Exam Location: [facility] [place] Indication: Abnormal stress test, Multivessel CAD BP: 145 / 76 HR: 52 Rhythm: Sinus Technical Quality: Adequate MEASUREMENTS (Male / Female) Normal Values 2D ECHO LV Diastolic Diameter PLAX 3.6 cm 4.2 - 5.9 / 3.9 - 5.3 cm LV Systolic Diameter PLAX 2.5 cm IVS Diastolic Thickness 1.3 cm 0.6 - 1.0 / 0.6 - 0.9 cm IVS Systolic Thickness 1.8 cm LVPW Diastolic Thickness 1.1 cm 0.6 - 1.0 / 0.6 - 0.9 cm LVPW Systolic Thickness 1.7 cm LVOT Diameter 2.0 cm LV Ejection Fraction 2D Teich 59.1 % LV Ejection Fraction MOD 2C 70.0 % LV Ejection Fraction 2C AL 69.5 % LA Diameter 4.0 cm Aorta at Sinotubular Diameter 3.3 cm IVC Diameter 1.7 cm M-MODE LV Diastolic Diameter MM 6.2 cm 4.2 - 5.9 / 3.9 - 5.3 cm LV Systolic Diameter MM 4.3 cm LV Ejection Fraction MM Teich 56.7 % IVS Diastolic Thickness MM 1.4 cm 0.6 - 1.0 / 0.6 - 0.9 cm IVS Systolic Thickness MM 1.8 cm LVPW Diastolic Thickness MM 1.3 cm 0.6 - 1.0 / 0.6 - 0.9 cm LVPW Systolic Thickness MM 1.9 cm RV Diastolic Diameter MM 1.2 cm Aortic Annulus Diameter 3.6 cm LA Ao Ratio MM 1.3 MV E Point Septal Separation 1.2 cm DOPPLER AV Peak Velocity 179.0 cm/s LVOT Peak Velocity 101.0 cm/s AV Area Cont Eq vti 1.6 cm squared AV Area Cont Eq pk 1.8 cm squared MV Area PHT 5.0 cm squared Mitral E to A Ratio 0.9 MV E' Velocity 38.0 cm/s Mitral E to MV E' Ratio 8.0 Mitral E to LV E' Lateral Ratio 6.9 Mitral E to LV E' Septal Ratio 9.5 TR Peak Velocity 139.0 cm/s TR Peak Gradient 7.7 mmHg Right Atrial Pressure 3.0 mmHg Pulmonary Artery Systolic Pressu 10.7 mmHg RV Acceleration Time 0.1 s FINDINGS Left Ventricle Normal left ventricular size, systolic function and wall thickness, with no regional wall motion abnormalities. Left ventricular ejection fraction is estimated at 70 %. Normal diastolic function. Right Ventricle Normal right ventricular size and systolic function. Right ventricular systolic pressure 10.7 mmHg. Right Atrium Normal right atrial size. Left Atrium Normal left atrial size. Mitral Valve Mildly thickened mitral valve. No mitral valve stenosis. No mitral valve regurgitation. Aortic Valve Structurally normal trileaflet aortic valve. No aortic valve stenosis. No aortic valve regurgitation. Tricuspid Valve Structurally normal tricuspid valve. No tricuspid valve stenosis. Trace tricuspid valve regurgitation. Pulmonic Valve Structurally normal pulmonic valve. No pulmonary valve stenosis. No pulmonary valve regurgitation. Pericardium No pericardial effusion. Aorta Normal size aortic root and proximal ascending aorta. IVC Normal IVC dimension with >50% respiratory change of the inferior vena cava. CONCLUSIONS 1. Normal left ventricular size, systolic function and wall thickness, with no regional wall motion abnormalities. Left ventricular ejection fraction is estimated at 70 %. Normal diastolic function. 2. Normal right ventricular size and systolic function. 3. No significant valvular abnormality. 4. No significant change when compared to study dated 08/24/2022. Yeny Whiteside MD (Electronically Signed) Final Date: 11 November 2022 08:09 S
--- NOTE | 2022-11-09 08:38 | PC.NURSE ---
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 Pt complains of no pain. TR band present on right wrist with distal pulse palpable. Pt and family educated on recovery and nurse will continue to educate throughout recovery. Pt placed on monitor and will be monitored per protocol.
--- NOTE | 2022-11-09 11:00 | PC.NURSE ---
TR band removed with no complications. Pt again educated on restrictions of right wrist. Pt and family stated understanding.
== END 2022-11-09 13:34 | disposition home or self-care (01) ==
PROVIDERS: Internal Medicine; PCP Nurse Practitioner Family; Visit Provider Internal Medicine Cardiovascular Disease
DX: I25.10 Atherosclerotic heart disease of native coronary artery without angina pectoris (principal); F17.210 Nicotine dependence, cigarettes, uncomplicated; Z86.73 Personal history of transient ischemic attack (TIA), and cerebral infarction without residual deficits; Z82.49 Family history of ischemic heart disease and other diseases of the circulatory system; Z83.3 Family history of diabetes mellitus
CPT/HCPCS: 36415; 93306; 93454; 96361; 96365; 99152; 99153; C1769; C1887; C1894; J0461; J1644; J2250; J3010; J3490; J7030; Q0163; Q9967

== ENCOUNTER → 2022-11-21 09:58 | Outpatient (BNVA) | payer MEDICARE, MEDICAID, SELFPAY | PROVIDERS: PCP Nurse Practitioner Family; Visit Provider Nurse Practitioner Family | DX: I25.10 Atherosclerotic heart disease of native coronary artery without angina pectoris (principal); F17.210 Nicotine dependence, cigarettes, uncomplicated | CPT/HCPCS: 36415; 80048; 99214 ==

== ENCOUNTER 2022-12-04 08:28 | Outpatient (CLI) | payer MEDICARE, MEDICAID, SELFPAY | END 2022-12-04 08:29 | disposition home or self-care (01) | PROVIDERS: PCP Nurse Practitioner Family; Visit Provider Surgery | DX: R06.02 Shortness of breath (principal); J44.9 Chronic obstructive pulmonary disease, unspecified | CPT/HCPCS: 94010; 94726; 94729 ==

== ENCOUNTER → 2023-02-08 11:09 | Outpatient (BNVA) | payer MEDICARE, MEDICAID, SELFPAY | PROVIDERS: PCP Nurse Practitioner Family; Visit Provider Nurse Practitioner Family | DX: I25.10 Atherosclerotic heart disease of native coronary artery without angina pectoris (principal); D64.9 Anemia, unspecified; R53.83 Other fatigue; I25.701 Atherosclerosis of coronary artery bypass graft(s), unspecified, with angina pectoris with documented spasm | CPT/HCPCS: 80053; 84443; 85025 ==

== ENCOUNTER 2023-02-14 13:42 | Outpatient (CLI) | payer MEDICARE, MEDICAID, SELFPAY ==
--- NOTE | 2023-02-14 14:09 | XR_ITS ---
WS: [id number] XR chest 2V* [id number] REASON FOR EXAM: R05.9 - FINDINGS: Sternotomy with presumed left internal mammary artery coronary bypass surgery. Normal heart size. Calcified granulomatous disease in both hemithoraces. No acute/subacute pulmonary parenchymal or pleural abnormality. XR/XR chest 2V* [id number] IMPRESSION: Status post coronary artery bypass surgery as above. No acute/subacute cardiopu lmonary abnormality. Abnormality.
== END 2023-02-14 13:43 | disposition home or self-care (01) ==
LOC: RAD 13:45
PROVIDERS: PCP Nurse Practitioner Family; Visit Provider Nurse Practitioner Family
DX: R05.9 Cough, unspecified (principal); Z95.1 Presence of aortocoronary bypass graft
CPT/HCPCS: 71046

== ENCOUNTER → 2023-02-25 10:35 | Outpatient (BNVA) | payer MEDICARE, MEDICAID, SELFPAY | PROVIDERS: PCP Nurse Practitioner Family; Visit Provider Internal Medicine Cardiovascular Disease | DX: I25.10 Atherosclerotic heart disease of native coronary artery without angina pectoris (principal); D64.9 Anemia, unspecified; J44.9 Chronic obstructive pulmonary disease, unspecified; Z95.1 Presence of aortocoronary bypass graft; G47.00 Insomnia, unspecified; R07.81 Pleurodynia; Z79.82 Long term (current) use of aspirin; Z87.891 Personal history of nicotine dependence | CPT/HCPCS: 99214 ==

== ENCOUNTER → 2023-03-11 14:45 | Outpatient (BNVA) | payer MEDICARE, MEDICAID, SELFPAY | PROVIDERS: PCP Nurse Practitioner Family; Visit Provider Internal Medicine Pulmonary Disease | DX: J44.9 Chronic obstructive pulmonary disease, unspecified (principal); I25.10 Atherosclerotic heart disease of native coronary artery without angina pectoris; Z95.1 Presence of aortocoronary bypass graft; F17.200 Nicotine dependence, unspecified, uncomplicated | CPT/HCPCS: 99204 ==

== ENCOUNTER 2023-03-20 13:40 | Outpatient (CLI) | payer MEDICARE, MEDICAID, SELFPAY ==
--- NOTE | 2023-03-20 14:00 | CT_ITS ---
WS: [id number] LDCT LUNG CANCER SCREENING TECHNIQUE: Noncontrast CT of the chest with coronal and sagittal reformatted images. CLINICAL INFORMATION: Lunf cancer screenin COMPARISON: None. DLP: 56.99 mGy.cm DIvol: Mean CTDIvol: 0.90 (mGy) All CT scans at [facility] use at least one of these dose optimization techniques: automat ed exposure control; mA and/or kV adjustment per patient size (includes targeted exams where dose is matched to clinical indication); or iterative reconstruction. FINDINGS: Normal caliber thoracic aorta. Calcification. Coronary calcification. CABG. Sternotomy. Normal calibe r thoracic aorta. No mediastinal or hilar lymphadenopathy. Adrenal glands are normal. Normal GE junction. No axillary lymphadenopathy. 8.3 mm slightly spiculat ed lesion in the lingula. Recommend 3 month follow-up. Hazy inflammatory opacities in RIGHT lower lobe laterally. Bibasilar atelectasis. Subpleural hazy opa city RIGHT lower lobe posterolaterally measuring [address]/CT lung screening [id number] IMPRESSION: LUNG-RADS: 4A-Probably Suspicious FOLLOW UP: 3 Month LDCT
== END 2023-03-20 13:41 | disposition home or self-care (01) ==
LOC: RAD 13:46
PROVIDERS: PCP Nurse Practitioner Family; Visit Provider Internal Medicine Pulmonary Disease
DX: Z12.2 Encounter for screening for malignant neoplasm of respiratory organs (principal); F17.200 Nicotine dependence, unspecified, uncomplicated; J44.9 Chronic obstructive pulmonary disease, unspecified; R07.81 Pleurodynia
CPT/HCPCS: 71271

== ENCOUNTER 2023-04-04 07:33 | Outpatient (CLI) | payer MEDICARE, MEDICAID, SELFPAY | END 2023-04-04 07:34 | disposition home or self-care (01) | LOC: RT 07:34 | PROVIDERS: PCP Nurse Practitioner Family; Visit Provider Internal Medicine Pulmonary Disease | DX: J44.9 Chronic obstructive pulmonary disease, unspecified (principal); F17.200 Nicotine dependence, unspecified, uncomplicated; I25.10 Atherosclerotic heart disease of native coronary artery without angina pectoris; Z95.1 Presence of aortocoronary bypass graft; R07.81 Pleurodynia | CPT/HCPCS: 94010; 94618; 94726; 94729; 99204 ==

== ENCOUNTER → 2023-05-17 09:00 | Outpatient (BNVA) | payer MEDICARE, MEDICAID, SELFPAY | PROVIDERS: PCP Nurse Practitioner Family; Visit Provider Internal Medicine Pulmonary Disease | DX: J44.9 Chronic obstructive pulmonary disease, unspecified (principal); R91.1 Solitary pulmonary nodule; F17.200 Nicotine dependence, unspecified, uncomplicated | CPT/HCPCS: 99214 ==

== ENCOUNTER → 2023-05-21 10:59 | Outpatient (BNVA) | payer MEDICARE, MEDICAID, SELFPAY | PROVIDERS: PCP Nurse Practitioner Family; Visit Provider Nurse Practitioner Family | DX: E78.5 Hyperlipidemia, unspecified (principal); I10 Essential (primary) hypertension | CPT/HCPCS: 80053; 80061; 82550 ==

== ENCOUNTER 2023-06-12 12:36 | Outpatient (CLI) | payer MEDICARE, MEDICAID, SELFPAY ==
--- NOTE | 2023-06-12 13:00 | CT_ITS ---
WS: [id number] CT chest wo con [id number] HISTORY: 3 month f/u TECHNIQUE: Axial imaging performed through the thorax. Coronal and sagittal reformats are submitted. All CT scans at [facility] use at least one of these dose optimization techniques: automated exposure control; mA and/or kV adjustment per patient size (includes targeted exams where dose is mat ched to clinical indication); or iterative reconstruction. CONTRAST: None DLP: 204.33 mGy.cm COMPARISON: 03/20/2023 Lungs and central airway: Moderate pulmonary hyperexpansion. Severe changes of emphysema are identifi ed. There is interstitial thickening bilaterally. Previously described hazy opacification in the RIGH T lower lobe is not reidentified. Spiculated 12 mm nodule in the lingula has slightly increased in si ze. This spiculation was not present on the prior examination from 12/27/2019. Pleura: Normal. No pleural effusion. Heart and pericardium: Normal size heart with no pericardial effusion. Prior CABG. Mediastinum and krystal: No mediastinum or hilar adenopathy. Vessels: Mild atherosclerosis aorta. Normal size pulmonary artery. Chest wall and lower neck: No soft tissue masses. Upper abdomen: Vascular calcifications LEFT kidney. Mild pancreatic atrophy. Osseous structures: No destructive process. CT/CT chest wo con [id number] IMPRESSION: 1. Slight increase in size spiculated nodule in the lingula now measuring 12 m m. Recommend PET/CT imaging. Nodule is new since 12/27/2019. Suspicious for neop lasm. 2. Hazy opacification in the RIGHT lower lobe is no longer identified. 3. Advanced chronic emphysema with interstitial fibrosis. 4. Prior CABG.
== END 2023-06-12 12:37 | disposition home or self-care (01) ==
PROVIDERS: PCP Nurse Practitioner Family; Visit Provider Internal Medicine Pulmonary Disease
DX: R91.1 Solitary pulmonary nodule (principal); J43.9 Emphysema, unspecified; J84.10 Pulmonary fibrosis, unspecified; Z95.1 Presence of aortocoronary bypass graft
CPT/HCPCS: 71250

== ENCOUNTER 2023-07-01 05:33 | Outpatient (CLI) | payer MEDICARE, MEDICAID, SELFPAY ==
--- NOTE | 2023-06-29 10:00 | PETR_ITS ---
PROCEDURE INFORMATION: Exam: PET/CT Skull Base to Mid-thigh Exam date and time: 06/29/2023 10:34 AM Age: 67 years old Clinical indication: Abnormal findings; Solitary pulmonary nodule; Additional info: Lung cancer screening LABS AND CLINICAL REPORTS: Glucose: 82 mg/dl Treatment strategy for malignancy (PET staging): Initial Staging (PI) TECHNIQUE: Imaging protocol: Following at least four-hour fasting and following the injection of radiopharmaceutical, low dose CT images were obtained. Then, PET images were obtained. Attenuation corrected images were constructed using the CT scan. Fused images of PET and CT were reviewed. The standardized uptake values (SUV) reported below are maximum values within a region of interest, expressed in gm/ml. Exam includes orbital meatal line to mid-thigh. Radiopharmaceutical: 11.32 mCi F-18 FDG (Fluorodeoxyglucose), IV. Time of imaging post radiopharmaceutical administration: 1 hour Injection site: site COMPARISON: CT chest con [id number] 06/12/2023 1:14 PM FINDINGS: Brain: Visualized brain has normal physiologic uptake. Pharynx: No abnormal uptake. Larynx: No abnormal uptake. Lungs, pleura and trachea: Spiculated nodule in the lingula measuring 12 mm maximum size on series 3, image 76 is unchanged since comparison CT chest. On PET there is uptake within the nodule with SUV max of 3.5. No other nodule. Stable emphysema. Heart: Normal physiologic uptake. Coronary arteries: Moderate coronary artery atherosclerosis status post CABG. Mediastinal space: No abnormal uptake. Liver: No abnormal uptake. Gallbladder and bile ducts: No abnormal uptake. Pancreas: No abnormal uptake. Spleen: No abnormal uptake. Adrenal glands: No abnormal uptake. Kidneys and ureters: 5 mm nonobstructing right renal stone. Left renal hilar vascular calcifications. Stomach and bowel: Diffuse uptake is seen in the stomach. Vasculature: No abnormal uptake. Atherosclerosis. Lymph nodes: There is a 4 mm short axis right level 2 lymph node on series 3, image 25 with SUV max of 4.0 most likely a reactive node. Bones/joints: Stable sternotomy changes. Soft tissues: No abnormal uptake in the visualized head, neck, chest, abdomen, pelvis, and extremities. [facility] [id number] IMPRESSION: 1. Stable spiculated 12 mm lingular nodule with uptake on PET again suspicious for neoplasm. Recommend biopsy correlation. No distant metastatic disease identified. 2. Nonenlarged right level 2 lymph node with mild uptake favored to be a reactive node. Attention on follow-up. 3. Diffuse gastric uptake suggests gastritis. Correlate clinically.
== END 2023-07-01 05:34 | disposition home or self-care (01) ==
LOC: RAD 05:34
PROVIDERS: PCP Nurse Practitioner Family; Visit Provider Internal Medicine Pulmonary Disease
DX: R91.1 Solitary pulmonary nodule (principal)
CPT/HCPCS: 78815; A9552

== ENCOUNTER 2023-07-08 05:19 | Day surgery (SDC) | payer MEDICARE, MEDICAID, SELFPAY ==
[2023-07-05 11:59] VITALS: BMI 23.5
[2023-07-08] VITALS (12 sets, daily range): BP systolic 102–129; BP diastolic 55–70; PULSE 50–62; RESP 13–18; TEMP 36.1–36.2; O2SAT 93–98
[2023-07-08] MEDS: sodium chloride 0.9% 1,000 ML 30 ML IV (06:34)
[2023-07-08] MEDS: ipratropium-albuterol 3 mL Neb INHALATION (06:38)
--- NOTE | 2023-07-08 06:50 | ANES.PREANE2 ---
Pre-Anesthetic Assessment Height/Weight: Height 1.7 m Weight 68.039 kg Temp Pulse Resp BP Pulse Ox O2 Del Method 97.0 F L 52 L 18 112/70 98 Room Air 07/08/23 06:11 07/08/23 06:41 07/08/23 06:41 07/08/23 06:11 07/08/23 06:41 07/08/23 06:41 Operation Date: 07/08/23 07:00 Proposed Procedures p ION, EBUS, [id number], 02459, 29540, 66656, 79908, 48002, 78685, 27670, 60825, 28269, 88810, 70606, 87617,R91.1(Not Applicable) - Darwin Eric MD s Ebus(Not Applicable) - Darwin GalerMD Familial anesthetic complications: None Was Beta Miguel Angel taken within 24 hours: Yes Was Clonidine taken within 24 hours: N/A Last intake: Intake Last Liquid Date 07/07/23 Last Liquid Time 20:00 Last Solid Date 07/07/23 Last Solid Time 16:00 Social Tobacco and No alcohol Exam alert, oriented x 3, clear to auscultation bilaterally and regular rate & rhythm Airway Mallampati: Class II Dentition: chipped Pulmonary Chronic Obstructive Pulmonary Disease lung nodule CV/HEM Coronary Artery Disease (cabg 01/03 - doing well since then per patient) and Hypertension Neuropsych mlid Carotid stenosis Anesthetic Plan ASA status: 4 Anesthesia: General Risk of > 500 ml blood loss (7ml/kg in children): No Medications/Allergies Home Medications Medication Instructions Recorded Confirmed Last Taken Type melatonin 10 mg capsule 10 mg PO .HS 09/13/22 07/08/23 07/07/23 History aspirin 325 mg tablet 325 mg PO DAILY #90 tabs 10/29/22 07/05/23 07/05/23 Rx nitroglycerin 0.4 mg sublingual 0.4 mg sublingual Q5M PRN Chest 11/09/22 07/05/23 Unknown Rx tablet Pain 30 days #30 tabs tiotropium 2.5 mcg-olodaterol 2.5 2 puff inhalation DAILY #4 grams 05/17/23 07/08/23 07/08/23 Rx mcg/actuation mist for inhalation (Stiolto Respimat) atorvastatin 80 mg tablet 80 mg PO DAILY 0807/08/23 07/08/23 History carvedilol 3.125 mg tablet 3.125 mg PO DAILY 07/05/23 07/08/23 07/08/23 History losartan 25 mg tablet 25 mg PO DAILY 07/05/23 07/08/23 07/08/23 History Allergies Allergy/AdvReac Type Severity Reaction Status Date / Time novacain Allergy ALGY-Hives Uncoded 05/21/23 10:10 Current Medications Generic Name Dose Route Start Last Admin Trade Name Lillian PRN Reason Stop Dose Admin Sodium Chloride 1,000 mls @ 30 mls/hr 07/08/23 05:45 07/08/23 06:34 Sodium Chloride 0.9% IV 07/09/23 05:44 30 mls/hr .Q24H DEXTER Administration PFSH Anesthesia Medical History Atherosclerosis of coronary artery Cervical radiculopathy History of colon polyps History of facial trauma Insomnia Intervertebral disc extrusion Pleuritic chest pain Smoker Surgical History H/O heart bypass surgery pt had 5 bypasses. pt SX was 12/28/22 pt was discharged on 01/10/2023 H/O shoulder surgery History of colonoscopy with polypectomy (~01/28/20) Repeat in 5 years since he had polyps on his colonoscopy from last year Hx of CABG Family History Mother Diabetes Father CAD (coronary artery disease) Sister Thyroid disease Social History Smoking and tobacco status: former smoker Alcohol intake: never Substance/Drug Use: never Adopted: No Lives independently: Yes Household members: spouse Housing: House Marital status: Number of children: 2 service: No Current occupational status: unemployed Pets and animals: Yes Pets & animals: dog(s) Data Anesthesia Cardiac Studies: Echocardiogram 11/09/22 Sestamibi Stress Test (Cardiology) 10/26/22 Holter Monitor 07/28/21
--- NOTE | 2023-07-08 07:10 | PM.OPSURHP ---
Providers/Chief Complaint Admitting Physician: Darwin Eric MD [facility] Referring Physican: RACQUEL Price Primary Care Provider: RACQUEL Price Chief Complaint: Left lingula lung nodule History of Present Illness Mr. Fausto Hahn is a 67-year-old male with past medical history of CAD s/p CABG, COPD, smoker, carotid bruit, anemia initially referred by Ms. Agueda Hahn for eval and treat COPD.? Today comes for follow-up Current smoker 2 ppd x 50 years, down to 1 ppd.? ? He had a PFT 12/04/2022 which showed spirometry with FEV1/FVC 77 and FEV1 3.19 L 100% and FVC 4.01 L 96%.? Lung volumes are not accurately measured.? DLCO is mildly reduced 65%. Lung volumes are not accurately measured and so I repeated PFTs 04/04/23 -spirometry showed normal with FEV1/FVC 77; FEV1 3 L 94% predicted; FVC 3.90 L 94% predicted.? There is no postbronchodilator study.? Lung volumes are normal.? Gas transfer is moderately reduced at DLCO 46%. Upon review of lab .? There is no evidence of chronic CO2 retention on labs. Patient had a low-dose CT 03/20/2023 which showed 8.3 slightly spiculated lesion in the lingula.? He has inflammatory opacities in RLL. His follow-up 3-month CT 06/12/2023 showed slight increase in spiculated nodule in lingula measuring 12 mm. PET/CT 06/29/2023: Showed stable spiculated 12 mm lingular nodule with uptake on PET SUV 3.5. No distant metastatic disease identified. Today scheduled for navigational bronchoscopic biopsy of left lingula pulmonary nodule and endobronchial ultrasound surveillance of hilar/mediastinal lymph nodes. Patient had abnormal myocardial perfusion scan in October 2022 underwent cardiac cath 11/09/2022 which showed severe multivessel coronary artery disease.? He underwent open heart surgery in [place] in December 2022 as per patient. Patient complains of exertional shortness of breath for several days.? He also complained of chronic cough with some sputum.? Denied any fever, chills, chest pains.? Currently using Stiolto. Reports breathing is slightly better. Review of Systems General: Reports: 10 or more systems reviewed and unremarkable except in HPI and below Medications/Allergies Home Medications Medication Instructions Recorded Confirmed Last Taken Type melatonin 10 mg capsule 10 mg PO .HS 09/13/22 07/08/23 07/07/23 History aspirin 325 mg tablet 325 mg PO DAILY #90 tabs 10/29/22 07/05/23 07/05/23 Rx nitroglycerin 0.4 mg sublingual 0.4 mg sublingual Q5M PRN Chest 11/09/22 07/05/23 Unknown Rx tablet Pain 30 days #30 tabs tiotropium 2.5 mcg-olodaterol 2.5 2 puff inhalation DAILY #4 grams 05/17/23 07/08/23 07/08/23 Rx mcg/actuation mist for inhalation (Stiolto Respimat) atorvastatin 80 mg tablet 80 mg PO DAILY 07/05/23 07/08/23 07/08/23 History carvedilol 3.125 mg tablet 3.125 mg PO DAILY 07/05/23 07/08/23 07/08/23 History losartan 25 mg tablet 25 mg PO DAILY 07/05/23 07/08/23 07/08/23 History Allergies Allergy/AdvReac Type Severity Reaction Status Date / Time novacain Allergy ALGY-Hives Uncoded 05/21/23 10:10 PFSH PFSH: Medical History Atherosclerosis of coronary artery Cervical radiculopathy History of colon polyps History of facial trauma Insomnia Intervertebral disc extrusion Pleuritic chest pain Smoker Surgical History H/O heart bypass surgery pt had 5 bypasses. pt SX was 12/28/22 pt was discharged on 01/10/2023 H/O shoulder surgery History of colonoscopy with polypectomy (~01/28/20) Repeat in 5 years since he had polyps on his colonoscopy from last year Hx of CABG Family History Mother Diabetes Father CAD (coronary artery disease) Sister Thyroid disease Social History Smoking and tobacco status: former smoker Alcohol intake: never Substance/Drug Use: never Adopted: No Lives independently: Yes Household members: spouse Housing: House Marital status: Number of children: 2 service: No Current occupational status: unemployed Pets and animals: Yes Pets & animals: dog(s) Vital Signs Vitals Signs: Last Vital Signs Temp 97.0 F L 07/08/23 06:11 Pulse 52 L 07/08/23 06:41 Resp 18 07/08/23 06:41 BP 112/70 07/08/23 06:11 Pulse Ox 98 07/08/23 06:41 O2 Del Method Room Air 07/08/23 06:41 Physical Exam Narrative: EXAM NARRATIVE: General: alert, NAD HEENT: conj clear, EOMI, PERRL, mmm, Neck: supple, no meningismus Heme: no cervical LAP Respiratory: Inspection: No visible deformity of the chest wall Palpation: Trachea is mildly deviated to the right, bilateral symmetric expansion Percussion: Bilateral tympanic percussion note both anterior and posteriorly Auscultation: Bilateral clear to auscultation both anterior and posteriorly, no crackles wheezing or rhonchi Cardiovascular: rrr, nl s1s2, no mrg Abdomen: soft, nt, nd, no r/g, bs+ Extremities: pulses +, no edema, no c/c : no CVA tenderness Skin: intact, no rash MSK: no back or neck pain Neurologic: grossly intact A&P Assessment and plan (1) Nodule of left lung: Patient had a low-dose CT 03/20/2023 which showed 8.3 slightly spiculated lesion in the lingula.? He has inflammatory opacities in RLL. His follow-up 3-month CT 06/12/2023 showed slight increase in spiculated nodule in lingula measuring 12 mm. PET/CT 06/29/2023: Showed stable spiculated 12 mm lingular nodule with uptake on PET SUV 3.5. No distant metastatic disease identified. Today scheduled for navigational bronchoscopic biopsy of left lingula pulmonary nodule and endobronchial ultrasound surveillance of hilar/mediastinal lymph nodes Explained in detail about possible complications pneumothorax requiring chest tube and hospitalization as well as bleeding. Patient and his family understood the complications and agreed for the procedure. (2) Tobacco abuse: Coding Level of Care Code Acute Code for Chg Fwd Diagnoses Nodule of left lung R91.1 Tobacco abuse Z72.0 Time Spent (min) 24
--- NOTE | 2023-07-08 07:11 | SC_ITS ---
WS: [id number] C-ARM RADIOGRAPHS CHEST; 3 IMAGES HISTORY: left upper lobe nodule COMPARISON: None available. Intraoperative imaging during EBUS evaluation and biopsy lingular nodule. Scope is noted in the regio n of the LEFT nodule. IMPRESSION: Intraoperative imaging during EBUS.
--- NOTE | 2023-07-08 09:45 | XR_ITS ---
WS: [id number] PORTABLE CHEST HISTORY: post op ebus COMPARISON: 02/14/2023 Prior CABG. No pneumothorax or pulmonary hemorrhage. Lungs are hyperinflated. Radiographically the spiculated nodule described at the lingula is not ident ified radiographically. No corresponding hemorrhage from the recent biopsy. No pleural effusion or pn eumothorax. Cardiac size: Normal. Mediastinum/Aorta: Mild atherosclerosis aorta. No osseous abnormality seen. IMPRESSION: 1. No pulmonary hemorrhage or pneumothorax status post biopsy. 2. Chronic emphysema and prior CABG.
--- NOTE | 2023-07-08 09:47 | PM.OP ---
Operative Report Date of procedure: July 08, 2023 Procedure done: 15494 Dx Bronchoscope w/Washings or airway inspection 15873 Dx Bronchoscope w/BAL 64150 Bronch with computer image guided Navigational Bronchoscopy 21099 Bronchoscopy w/Transbronchial lung biopsy(s), single lobe 84821 Bronchoscopy w/Transbronchial needle aspiration biopsy(s), tracheal, main stem, and/or lobar bronchus 56024 Bronchoscopy w/ therapeutic aspiration of the tracheobronchial tree (clearance of airway secretions, removal of mucus plugs) 73797 EBUS Sampling >=3 nodes 27948 EBUS Diag or Interven Peripheral lesion (radial EBUS) Brief History: Mr. Fausto Hahn is a 67-year-old male with past medical history of CAD s/p CABG, COPD, chronic smoker [id number] history,, carotid bruit, anemia had a low-dose CT 03/20/2023 which showed 8.3 slightly spiculated lesion in the lingula.? He has inflammatory opacities in RLL. His follow-up 3-month CT 06/12/2023 showed slight increase in spiculated nodule in lingula measuring 12 mm. PET/CT 06/29/2023: Showed stable spiculated 12 mm lingular nodule with uptake on PET SUV 3.5.? No distant metastatic disease identified. Today scheduled for navigational bronchoscopic biopsy of left lingula pulmonary nodule and endobronchial ultrasound surveillance of hilar/mediastinal lymph nodes. Procedure: 07885 Dx Bronchoscope w/Washings or airway inspection 78232 Dx Bronchoscope w/BAL 36541 Bronch with computer image guided Navigational Bronchoscopy 72303 Bronchoscopy w/Transbronchial lung biopsy(s), single lobe 24732 Bronchoscopy w/Transbronchial needle aspiration biopsy(s), tracheal, main stem, and/or lobar bronchus 07107 Bronchoscopy w/ therapeutic aspiration of the tracheobronchial tree (clearance of airway secretions, removal of mucus plugs) 75067 EBUS Sampling >=3 nodes 09642 EBUS Diag or Interven Peripheral lesion (radial EBUS) Indication: Description of the procedure: The procedure was explained to the patient and the consent was obtained.? The patient was brought to the OR. Anesthesia: The patient underwent endotracheal intubation for general anesthesia. Local anesthesia: Local anesthesia was not administered as patient has allergies to Novocain Following induction of general anesthesia, the flexible bronchoscope was advanced through the? ET tube.? The? lower trachea mucosa appeared normal, no endotracheal lesion was seen.? The yessy was sharp.? ? In a systematic manner bilateral bronchial tree was then examined. ? The bronchoscope was then introduced into the right mainstem bronchus.? The right upper lobe, right middle lobe and right lower lobe bronchi were examined up to the third subsegmental level and no abnormalities were identified.Mucosa appeared normal with no endobronchial lesion, active bleeding or mucous plug.There were significant thick mucus secretions which were suctioned right away.(34787). The bronchoscope was advanced into the left mainstem bronchus.? The mucosa appeared normal with no endobronchial lesions.? The left upper lobe, lingula and left lower lobe bronchi were examined up to the third subsegmental level and no abnormalities were identified.? Mucosa appeared normal with no endobronchial lesion, active bleeding or mucous plug.??There were significant thick mucus secretions which were suctioned right away.(76323). After initial inspection as well as airway clearance with flexible bronchoscope(75081),?ION robotic assisted navigational bronchoscope (52386)?was introduced-and Left lingular lesion was accessed.? After?confirming the location with radial EBUS (32913), under the fluoroscopy guidance? -we were able to obtain biopsies using fine-needle, forceps.There was some evidence of grade 2 bleeding-cold saline was instilled.? Bronchoalveolar lavage was also taken from left lingular subsegment. After making sure there is no active bleeding navigational bronchoscope was retracted and introduced?Endobronchial ultrasound EBUS (25579). ? With the help of EBUS, identified a lymph node Station 7, station 4L, station 11 L. ??Fine-needle aspiration biopsies? were taken from station 7, station 4L, station 11 L 78756) After taking the biopsies EBUS retracted-diagnostic bronchoscope was introduced to check for any evidence of active bleeding. There was some evidence of bleeding-controlled with instillation of cold saline. After making sure there is no active bleeding bronchoscope was retracted and procedure terminated. ? Samples: A.? left lingular lesion 1.? Total of 4 passes were made using?needle aspiration(17089); we do not have onsite pathology and hence all the material was placed in formalin and sent for histopathology 2.? Targeting the same area 5 passes were made using?forceps (48025);?we do not have onsite pathology and hence all the material was placed in formalin and sent for histopathology 3.?Bronchoscope was wedged at the entrance of the segment left lingular segment, 20 mL of saline was instilled and returned 12 mL of bronchoalveolar lavage (18907).? The fluid was mixed with blood and specks of tissue. Samples for cell count, cytology, microbiology cultures B.?EBUS guided? Fine-needle aspiration biopsies? were taken from station 4L, station 11 L and station 7.? (02797) 1.? Total of 3 passes were made using needle aspiration(86992) from station7; ? all the material was placed in formalin and sent for histopathology 2.? Total of 3 passes were made using needle aspiration(56653) from station 4 L; ? all the material was placed in formalin and sent for histopathology 3.? Total of 3 passes were made using needle aspiration(92932) from station 11L:? all the material was placed in formalin and sent for histopathology ? Complications: None.The patient was extubated and brought to the PACU in stable condition. Postprocedure chest x-ray: There is no evidence of pneumothorax Disposition: Patient can be discharged home in stable condition. ? Pt?and family are aware that I am going to call him? to update final biopsy results once available. Related Problem List Diagnoses (1) Nodule of left lung:
--- NOTE | 2023-07-08 10:30 | ANE.PACU2 ---
Inpatient post-anesthesia follow up: Airway intact: Yes Vital signs: Temperature 97.2 F Pulse Rate 50 Respiratory Rate 16 Blood Pressure 117/69 Pulse Oximetry 96 Oxygen Delivery Me thod Room Air Oxygen Flow Rate Fraction of Inspir ed Oxygen Hydration adequate: Yes Nausea and vomiting: Yes Pain level: 2 Mental status: Baseline
[2023-07-08 11:40] LABS: Apprearance, Bronch Wash Bloody (CLEAR); Color, Bronc Wash Red
[2023-07-08 11:44] LABS: RBC Side Within 10% 9; WBC Within 10% 10
[2023-07-08 11:45] LABS: Total Cells Counted Bronch 400
[2023-07-08 11:47] LABS: Bronch Source Left Upper Lobe; PATH Referral Yes
[2023-07-08 13:59] LABS: Cyto Order Verification Order Verified
[2023-07-12 09:28] LABS: PD-L1 (Clone 22C3) by IHC BBPL See Report
== END 2023-07-08 10:30 | disposition home or self-care (01) ==
PROVIDERS: PCP Nurse Practitioner Family; Visit Provider Internal Medicine Pulmonary Disease
PROC: 0BJ08ZZ Inspection of Tracheobronchial Tree, Via Natural or Artificial Opening Endoscopic (ICD-10-PCS; CPT 31622; principal; 2023-07-08 07:00)
PROC: BB4BZZZ Ultrasonography of Pleura (ICD-10-PCS; 2023-07-08 07:00)
DX: C34.12 Malignant neoplasm of upper lobe, left bronchus or lung (principal); J44.9 Chronic obstructive pulmonary disease, unspecified; I25.10 Atherosclerotic heart disease of native coronary artery without angina pectoris; Z95.1 Presence of aortocoronary bypass graft; I10 Essential (primary) hypertension; Z79.82 Long term (current) use of aspirin; Z87.891 Personal history of nicotine dependence
CPT/HCPCS: 31624; 31627; 31628; 31629; 31645; 31653; 31654; 71045; 76000; 80503; 87070; 87205; 88112; 88305; 88341; 88342; 89050; 94640; J1100; J1200; J2371; J2405; J2704; J3010; J3490; J7030

== ENCOUNTER → 2023-07-18 09:27 | Outpatient (BNVA) | payer MEDICARE, MEDICAID, SELFPAY | PROVIDERS: PCP Nurse Practitioner Family; Referring Provider Internal Medicine Pulmonary Disease; Visit Provider Thoracic Surgery (Cardiothoracic Vascular Surgery) | DX: C34.92 Malignant neoplasm of unspecified part of left bronchus or lung (principal); F17.210 Nicotine dependence, cigarettes, uncomplicated | CPT/HCPCS: 99203 ==

== ENCOUNTER 2023-08-15 11:29 | Outpatient (CLI) | payer MEDICARE, MEDICAID, SELFPAY ==
[2023-08-15 12:43] LABS: ABG PH Result 7.39 (7.35-7.45); Alveolar-Arterial Oxygen Gradi 0.9 mmHg (5-10); Arterial Blood Gas Hematocrit 46.7 % (42-52); Base Excess ABG -1.4 mmol/L (-2.0-2.0); Blood Gas Allen Test Pos; Blood Gas Operator Identificat BROMA; Blood Gas Sample Site Radial, left; Blood Gas Sample Type Arterial; Carboxyhemoglobin 9.5 %THgb (0.4-20.1); HCO3 ABG 23.2 mmol/L (22-26); HGB O2 Sat 89.1 % (95-100); Ionized Calcium Level - ABG 1.2 mmol/L (1.1-1.4); Methemoglobin 0.5 % (0.4-1.5); Oxygen Device ROOM AIR; Oxygen Saturation ABG 98.9; PO2 ABG 94.5 mmHg (80.0-100.0); Potassium Level - ABG 3.9 mmol/L (3.5-5.0); Total Hemoglobin 15.2 g/dL (14-18)
== END 2023-08-15 11:30 | disposition home or self-care (01) ==
LOC: RT 11:30
PROVIDERS: PCP Nurse Practitioner Family; Visit Provider Surgery
DX: R06.09 Other forms of dyspnea (principal); F17.200 Nicotine dependence, unspecified, uncomplicated; Z01.818 Encounter for other preprocedural examination
CPT/HCPCS: 36600; 80051; 82330; 82805; 94010; 94726; 94729

== ENCOUNTER → 2023-10-23 14:45 | Outpatient (BNVA) | payer MEDICARE, MEDICAID, SELFPAY | PROVIDERS: PCP Nurse Practitioner Family; Visit Provider Internal Medicine Pulmonary Disease | DX: R91.1 Solitary pulmonary nodule (principal); J43.2 Centrilobular emphysema; F17.200 Nicotine dependence, unspecified, uncomplicated | CPT/HCPCS: 99214 ==

== ENCOUNTER 2024-03-09 07:56 | Outpatient (CLI) | payer MEDICARE, MEDICAID, SELFPAY ==
--- NOTE | 2024-03-09 08:00 | CT_ITS ---
WS: [id number] CT chest wo con [id number] HISTORY: S/p left upper lobectomy for lung cancer-surveillance CT TECHNIQUE: Axial imaging performed through the thorax. Coronal and sagittal reformats are submitted. All CT scans at [facility] use at least one of these dose optimization techniques: automated exposure control; mA and/or kV adjustment per patient size (includes targeted exams where dose is mat ched to clinical indication); or iterative reconstruction. CONTRAST: None DLP: 269.89 mGy.cm COMPARISON: 06/12/2023, PET/CT 06/29/2023 Lungs and central airway: Status post LEFT upper lobectomy since 06/12/2023. Mild volume loss LEFT lobe status post lobectomy. Chronic emphysema. No mass, nodule or pneumonia. Pleura: Normal. No pleural effusion. Heart and pericardium: Normal size heart with no pericardial effusion. Mediastinum and krystal: Numerous mediastinal and hilar lymph nodes. These nodes have increased in size and number since 06/12/2023. Hilar regions are difficult to evaluate adequately for lymphadenopathy. Th e lymph nodes are not significantly enlarged. The largest inferior RIGHT paratracheal region is 9 mm. Small axillary lymph nodes. Vessels: Prior CABG. Extensive coronary artery calcifications. Mild atherosclerosis aorta. Chest wall and lower neck: No soft tissue masses. Upper abdomen: No adrenal mass. Visualized liver is negative. Mild suprarenal aortic calcifications. LEFT renal artery calcification. Osseous structures: No lytic or blastic bone lesions. IMPRESSION: 1. Status post LEFT upper lobectomy since the prior examination. 2. No mass or nodule identified on today's noncontrast CT. 3. Small mediastinal and hilar lymph nodes has slightly increased in size and number since 06/12/2023. These may be reactive versus early metastatic disease. Short-term follow-up recommended to ensure no increasing size. 4. Prior CABG. 5. No adrenal mass.
== END 2024-03-09 07:57 | disposition home or self-care (01) ==
LOC: RAD 07:57
PROVIDERS: PCP Nurse Practitioner Family; Visit Provider Internal Medicine Pulmonary Disease
DX: C34.92 Malignant neoplasm of unspecified part of left bronchus or lung (principal)
CPT/HCPCS: 71250

== ENCOUNTER 2024-03-31 10:06 | Outpatient (CLI) | payer MEDICARE, MEDICAID, SELFPAY ==
--- NOTE | 2024-03-31 10:30 | PETR_ITS ---
PROCEDURE INFORMATION: Exam: PET/CT Skull Base to Mid-thigh Exam date and time: 03/31/2024 10:43 AM Age: 68 years old Clinical indication: Condition or disease and abnormal findings; Primary cancer: Lung cancer; Status post left upper lobectomy since the prior examination. 2. No mass or nodule identified on today's noncontrast CT. 3. Small mediastinal and hilar lymph nodes has slightly increased in size and number since 06/12/2023. These May be reactive versus early metastatic disease; Prior surgery; Surgery date: 6+ months; Surgery type: Left upper lobe, heart; Additional info: Follow up lung nodules LABS AND CLINICAL REPORTS: Glucose: 86 mg/dl Treatment strategy for malignancy (PET staging): Restaging (PS) TECHNIQUE: Imaging protocol: Following at least four-hour fasting and following the injection of radiopharmaceutical, low dose CT images were obtained. Then, PET images were obtained. Attenuation corrected images were constructed using the CT scan. Fused images of PET and CT were reviewed. The standardized uptake values (SUV) reported below are maximum values within a region of interest, expressed in gm/ml. Exam includes orbital meatal line to mid-thigh. Radiopharmaceutical: 11.35 mCi F-18 FDG (Fluorodeoxyglucose), IV. Time of imaging post radiopharmaceutical administration: 1 hour Injection site: Right antecubital COMPARISON: CT chest 03/09/2024, PT PET [facility] SUBSEQ [id number] 06/29/2023 10:34 AM FINDINGS: Brain: Visualized brain has normal physiologic uptake. Salivary glands: Mild, likely physiologic or inflammatory uptake is identified in the bilateral parotid and submandibular glands without discrete lesions on the CT images. Pharynx: No abnormal uptake. Larynx: There is physiologic appearing uptake in the region of the vocal cords. Lungs, pleura and trachea: No abnormal uptake. Mild centrilobular emphysematous changes are present. Mild right apical bullous versus paraseptal emphysematous changes are noted. There are postoperative changes of left upper lobectomy. Heart: Normal physiologic uptake. Mediastinal space: No abnormal uptake. Liver: No abnormal uptake. Gallbladder and bile ducts: No abnormal uptake. Pancreas: No abnormal uptake. Spleen: No abnormal uptake. Adrenal glands: No abnormal uptake. Kidneys and ureters: Normal physiologic uptake. A 2-3 mm nonobstructing right renal inferior pole calculus is noted. Unremarkable left kidney. Stomach and bowel: Diffuse proximal to mid gastric uptake is noted, SUV max 7.3 (previously 4.8). This uptake is diffuse in nature. No definite correlating mass is noted on the CT images. Assessment of the wall is limited by incomplete distension on the CT images. Reproductive: There is moderate prominence of the prostate gland without abnormal uptake. Vasculature: No abnormal uptake. There are diffuse atherosclerotic changes including within the coronary arteries. Lymph nodes: A 1.1 cm precarinal non radiotracer avid lymph node on series 3, image 85; this lymph node is similar in size since the prior PET-CT and remains non radiotracer avid. A subcarinal lymph node measures 2.0 x 1.3 cm on series 3, image 90, SUV max 3.0 (previously 2.8). This lymph node is similar in size compared to the prior PET-CT. Mildly prominent lymph nodes in the pericardial fat adjacent to the ascending aorta on the left are newly mildly prominent compared with the prior PET-CT for example measuring 1.4 x 0.8 cm on series 3 image 83. Skeleton: No abnormal uptake in the visualized axial and appendicular skeleton. Degenerative changes in the spine are present. Sternotomy wires are noted. A non radiotracer avid at least partially healed lateral left probable osteotomy site is noted on series 3, image 92. Soft tissues: No abnormal uptake in the visualized head, neck, chest, abdomen, pelvis, and extremities. METRICS: Mediastinal blood pool: SUV max 2.1 [facility] [id number] IMPRESSION: 1. Similar postoperative changes of left upper lobectomy. 2. Mildly prominent mediastinal lymph nodes appears similar in size compared with the prior PET-CT with the exception of new mild prominence of lymph nodes in the pericardial fat adjacent to the ascending aorta. Only one of these lymph nodes located in the subcarinal space demonstrates mild uptake which is slightly increased. This uptake may be related to infectious or inflammatory changes. Malignancy cannot be entirely excluded. 3. Diffuse uptake in the proximal to mid stomach is increased since the prior PET-CT with an appearance most suggestive probable inflammatory changes/gastritis. A malignant etiology is less likely. 4. Additional nonurgent findings as detailed above.
== END 2024-03-31 10:07 | disposition home or self-care (01) ==
PROVIDERS: PCP Nurse Practitioner Family; Visit Provider Internal Medicine Pulmonary Disease
DX: R59.9 Enlarged lymph nodes, unspecified (principal); Z90.2 Acquired absence of lung [part of]; J38.3 Other diseases of vocal cords; K11.8 Other diseases of salivary glands; J43.2 Centrilobular emphysema; J43.8 Other emphysema; N20.0 Calculus of kidney; R93.5 Abnormal findings on diagnostic imaging of other abdominal regions, including retroperitoneum; M48.8X9 Other specified spondylopathies, site unspecified
CPT/HCPCS: 78815; A9552

== ENCOUNTER → 2024-04-03 11:54 | Outpatient (BNVA) | payer MEDICARE, MEDICAID, SELFPAY | PROVIDERS: PCP Nurse Practitioner Family; Visit Provider Nurse Practitioner Family | DX: Z12.5 Encounter for screening for malignant neoplasm of prostate (principal); I10 Essential (primary) hypertension; R53.83 Other fatigue | CPT/HCPCS: 80053; 80061; 85025; G0103 ==

== ENCOUNTER → 2024-04-14 09:29 | Outpatient (BNVA) | payer MEDICARE, MEDICAID, SELFPAY | PROVIDERS: PCP Nurse Practitioner Family; Visit Provider Nurse Practitioner Family | DX: H61.031 Chondritis of right external ear (principal); L73.8 Other specified follicular disorders; L57.8 Other skin changes due to chronic exposure to nonionizing radiation; L57.0 Actinic keratosis | CPT/HCPCS: 17000; 99203 ==

== ENCOUNTER → 2024-05-12 09:05 | Outpatient (BNVA) | payer MEDICARE, MEDICAID, SELFPAY | PROVIDERS: PCP Nurse Practitioner Family; Visit Provider Nurse Practitioner Family | DX: H61.031 Chondritis of right external ear (principal); L57.8 Other skin changes due to chronic exposure to nonionizing radiation; D22.5 Melanocytic nevi of trunk | CPT/HCPCS: 11900; 99213 ==

== ENCOUNTER → 2024-06-09 09:25 | Outpatient (BNVA) | payer MEDICARE, MEDICAID, SELFPAY | PROVIDERS: PCP Nurse Practitioner Family; Visit Provider Nurse Practitioner Family | DX: D48.5 Neoplasm of uncertain behavior of skin (principal); L57.8 Other skin changes due to chronic exposure to nonionizing radiation; D22.5 Melanocytic nevi of trunk | CPT/HCPCS: 69100; 99213 ==

== ENCOUNTER 2024-06-30 14:37 | Oncology outpatient (recurring) (ONCR) | payer MEDICARE, MEDICAID, SELFPAY | END 2024-07-16 09:17 | disposition home or self-care (01) | PROVIDERS: PCP Nurse Practitioner Family; Visit Provider Internal Medicine Medical Oncology | DX: C34.12 Malignant neoplasm of upper lobe, left bronchus or lung (principal); Z53.9 Procedure and treatment not carried out, unspecified reason | CPT/HCPCS: 99205 ==

== ENCOUNTER 2024-07-20 07:26 | Outpatient (CLI) | payer MEDICARE, MEDICAID, SELFPAY ==
--- NOTE | 2024-07-20 07:30 | CT_ITS ---
WS: [id number] CT chest w con* [id number] HISTORY: follow up lung cancer TECHNIQUE: Axial imaging performed through the thorax. Coronal and sagittal reformats are submitted. All CT scans at [facility] use at least one of these dose optimization techniques: automated exposure control; mA and/or kV adjustment per patient size (includes targeted exams where dose is mat ched to clinical indication); or iterative reconstruction. CONTRAST: Omnipaque 350; 100 mL IV. DLP: 279.94 mGy.cm COMPARISON: 03/09/2024, PET/CT 03/31/2024 Lungs and central airway: History of prior LEFT upper lobectomy. Chronic emphysema. Mild volume loss in the LEFT thorax. No recurrent mass or new pulmonary nodule. Pleura: Normal. No pleural effusion. Heart and pericardium: Normal size heart with no pericardial effusion. Prior CABG. Mediastinum and krystal: There are a few mediastinal and hilar lymph nodes which appear very similar to the PET/CT of 03/31/2024. RIGHT hilar lymph node maximum at 1.0 cm. Subcarinal lymph node 1.1 cm. No p ericardiac adenopathy identified. Small paratracheal lymph nodes. Vessels: Mild atherosclerosis aorta. Normal size pulmonary artery. Chest wall and lower neck: No soft tissue masses. Upper abdomen: As visualized normal. Osseous structures: No destructive process. CT/CT chest w con* [id number] IMPRESSION: 1. Status post LEFT upper lobectomy. 2. No recurrent pulmonary mass or new mass. 3. Stable mildly prominent mediastinal and hilar lymph nodes. Majority of thes e lymph nodes were negative on PET/CT. The PET/CT positive subcarinal lymph nod e is reidentified and not increasing in size since 03/31/2024. 4. Status post CABG. 5. Atherosclerosis aorta.
[2024-07-20] MEDS: iohexol 350 mg/mL 500 mL Btl (per mL) IV (08:09)
[2024-07-20 08:11] LABS: Blood Urea Nitrogen 10 mg/dL (8-23); Glomerular Filtration Rate 74.8 mL/min (90-130)
[2024-07-20 08:17] LABS: Basophils # 0.1 10^3/uL (0.0-0.1); Basophils % 1.1 %; Eosinophils # 0.6 10^3/uL (0.0-0.8); Eosinophils % 7.7 %; Hematocrit 43.8 % (37-53); Lymphocytes # 2.3 10^3/uL (0.8-4.8); Lymphocytes % 31.2 %; Mean Corpuscular HGB Conc 33.6 g/dL (30-55); Mean Corpuscular Hemoglobin 31.5 pg (27-33); Mean Corpuscular Volume 93.8 fl (82-101); Mean Platelet Volume 11.8 fL (7.4-10.4); Monocytes # 0.9 10^3/uL (0.2-0.9); Monocytes % 12.1 %; Neutrophils # 3.52 10^3/uL (1.8-7.7); Neutrophils % 47.8 %; Nucleated Red Blood Cells % 0 %; Platelet Count 210 10^3/cmm (157-399); Red Blood Count 4.67 10^6/uL (3.85-5.65); Red Cell Distribution Width 12.8 % (12.1-15.1); White Blood Count 7.37 10^3/uL (3.29-11.43)
[2024-07-20 08:34] LABS: Alanine Aminotransferase 18 U/L (0-41); Albumin Level 4.2 g/dL (3.5-5.2); Alkaline Phosphatase 98 U/L (40-130); Anion Gap 12.9 (5-19); Aspartate Amino Transferase 27 U/L (0-40); Blood Urea Nitrogen 11 mg/dL (8-23); Carbon Dioxide 28 mmol/L (22-29); Chloride 105 mmol/L (98-107); Glomerular Filtration Rate 84.4 mL/min (90-130); Glucose 106 mg/dL (65-115); Osmolality Calculated 292 mOsm/kg (285-295); Potassium 4.9 mmol/L (3.5-5.1); Sodium 141 mmol/L (136-145); Total Bilirubin 0.3 mg/dL (0.15-1.2); Total Protein 7.2 g/dL (6.6-8.7)
== END 2024-07-20 07:27 | disposition home or self-care (01) ==
LOC: RAD 07:26
PROVIDERS: PCP Nurse Practitioner Family; Visit Provider Internal Medicine Medical Oncology
DX: C34.12 Malignant neoplasm of upper lobe, left bronchus or lung (principal); Z90.2 Acquired absence of lung [part of]; J43.9 Emphysema, unspecified; R59.0 Localized enlarged lymph nodes; Z95.1 Presence of aortocoronary bypass graft; I70.0 Atherosclerosis of aorta
CPT/HCPCS: 71260; 80053; 82565; 84520; 85025

== ENCOUNTER → 2024-10-05 08:57 | Outpatient (BNVA) | payer MEDICARE, MEDICAID, SELFPAY | PROVIDERS: PCP Nurse Practitioner Family; Visit Provider Nurse Practitioner Family | DX: I25.10 Atherosclerotic heart disease of native coronary artery without angina pectoris (principal); I10 Essential (primary) hypertension | CPT/HCPCS: 80053; 80061 ==

== ENCOUNTER 2024-10-14 13:52 | Outpatient (CLI) | payer MEDICARE, MEDICAID, SELFPAY ==
--- NOTE | 2024-10-14 14:00 | CT_ITS ---
WS: [id number] CT chest w con* [id number] HISTORY: Squamous cell carcinoma, follow-up lung cancer. TECHNIQUE: Axial imaging performed through the thorax. Coronal and sagittal reformats are submitted. All CT scans at [facility] use at least one of these dose optimization techniques: automated exposure control; mA and/or kV adjustment per patient size (includes targeted exams where dose is mat ched to clinical indication); or iterative reconstruction. CONTRAST: Omnipaque 350; 100 mL IV. DLP: 270.04 mGy.cm COMPARISON: 07/20/2024, 03/31/2024 Lungs and central airway: Status post LEFT upper lobectomy. Chronic emphysema with mild volume loss i n the LEFT thorax due to the lobectomy. There are several new pulmonary nodules which will need to be further evaluated. These nodules were not present on 07/20/2024. 4.5 mm nodule in the LEFT lower lobe, image 34 of series 4. There are additional bilateral nodules identified. Majority of these nodules r shen in size from 2 to 5 mm and are scattered throughout. Pleura: Normal. No pleural effusion. Heart and pericardium: Normal size heart with no pericardial effusion. Mediastinum and krystal: Reidentified are indeterminate mediastinal and hilar lymph nodes. Inferior RIGH T paratracheal lymph node measures 8 mm. RIGHT hilar lymph node has slightly increased in size to 1.3 cm. Subcarinal lymph node is stable at 1.2 cm. Vessels: Mild atherosclerosis aorta. No aneurysm. Normal size pulmonary artery. Chest wall and lower neck: Prior CABG. Upper abdomen: No adrenal mass. Visualized liver is negative. Small hiatal hernia. Osseous structures: No destructive process. CT/CT chest w con* [id number] IMPRESSION: 1. Status post LEFT upper lobectomy. 2. Multiple, small new pulmonary nodules. These nodules range in size from 2 t o 5 mm. Early metastatic disease needs to be considered. PET/CT imaging may not be of benefit due to the very small size of these nodules. Recommend follow-up chest CT with IV contrast in 3 months. 3. Small mediastinal and hilar lymph nodes. The largest lymph node is 1.3 cm a t the RIGHT hilum. Lymph node is measuring slightly greater in size as compared to 07/20/2024. 4. No adrenal mass. 5. Prior CABG.
[2024-10-14] MEDS: iohexol 350 mg/mL 500 mL Btl (per mL) IV (14:04)
== END 2024-10-14 13:53 | disposition home or self-care (01) ==
LOC: RAD 13:53
PROVIDERS: PCP Nurse Practitioner Family; Visit Provider Internal Medicine Medical Oncology
DX: C34.12 Malignant neoplasm of upper lobe, left bronchus or lung (principal); Z90.2 Acquired absence of lung [part of]; Z95.1 Presence of aortocoronary bypass graft; R91.8 Other nonspecific abnormal finding of lung field
CPT/HCPCS: 71260

== ENCOUNTER 2024-10-28 12:11 | Oncology outpatient (recurring) (ONCR) | payer MEDICARE, MEDICAID, SELFPAY ==
[2024-10-28 12:34] LABS: Basophils # 0.1 10^3/uL (0.0-0.1); Basophils % 0.9 %; Eosinophils # 0.3 10^3/uL (0.0-0.8); Eosinophils % 4.3 %; Hematocrit 41.6 % (37-53); Lymphocytes # 0.6 10^3/uL (0.8-4.8); Lymphocytes % 7.7 %; Mean Corpuscular HGB Conc 34.1 g/dL (30-55); Mean Corpuscular Hemoglobin 30.8 pg (27-33); Mean Corpuscular Volume 90.2 fl (82-101); Mean Platelet Volume 11.5 fL (7.4-10.4); Monocytes # 1.1 10^3/uL (0.2-0.9); Monocytes % 14.2 %; Neutrophils % 72.6 %; Nucleated Red Blood Cells % 0 %; Platelet Count 208 10^3/cmm (157-399); Red Blood Count 4.61 10^6/uL (3.85-5.65); Red Cell Distribution Width 12.3 % (12.1-15.1); White Blood Count 7.97 10^3/uL (3.29-11.43)
[2024-10-28 13:35] LABS: Alanine Aminotransferase 20 U/L (0-41); Albumin Level 4.1 g/dL (3.5-5.2); Alkaline Phosphatase 89 U/L (40-130); Aspartate Amino Transferase 25 U/L (0-40); Blood Urea Nitrogen 15 mg/dL (8-23); Calcium 8.9 mg/dL (8.5-10.5); Carbon Dioxide 20 mmol/L (22-29); Chloride 101 mmol/L (98-107); Creatinine Clr Calc Pharmacy 78.5282; Globulin 2.8 g/dL (1.3-4.6); Glomerular Filtration Rate 84.2 mL/min (90-130); Glucose 122 mg/dL (65-115); Osmolality Calculated 284 mOsm/kg (285-295); Sodium 136 mmol/L (136-145); Total Bilirubin 0.4 mg/dL (0.15-1.2); Total Protein 6.9 g/dL (6.6-8.7)
== END 2024-11-10 23:59 | disposition home or self-care (01) ==
PROVIDERS: PCP Nurse Practitioner Family; Visit Provider Internal Medicine Medical Oncology
DX: Z53.9 Procedure and treatment not carried out, unspecified reason; C34.12 Malignant neoplasm of upper lobe, left bronchus or lung
CPT/HCPCS: 36415; 80053; 85025; 99213

== ENCOUNTER 2025-01-08 13:12 | Oncology outpatient (recurring) (ONCR) | payer MEDICARE, MEDICAID, SELFPAY ==
[2025-01-08] MEDS: iohexol 350 mg/mL 500 mL Btl (per mL) PO (14:08)
[2025-01-08 14:15] LABS: Blood Urea Nitrogen 15 mg/dL (8-23); Glomerular Filtration Rate 74.5 mL/min (90-130)
--- NOTE | 2025-01-08 14:15 | CTR_ITS ---
PROCEDURE INFORMATION: Exam: CT Chest With Contrast; Diagnostic Exam date and time: 01/08/2025 2:13 PM Age: 69 years old Clinical indication: Condition or disease; Lung condition and disease; Cancer of the lung; Unspecified; Prior surgery; Surgery date: 6+ months; Surgery type: Left lung, heart; Additional info: Compare to previous; Lung cancer TECHNIQUE: Imaging protocol: Diagnostic computed tomography of the chest with contrast. Radiation optimization: All CT scans at this facility use at least one of these dose optimization techniques: automated exposure control; mA and/or kV adjustment per patient size (includes targeted exams where dose is matched to clinical indication); or iterative reconstruction. Contrast material: OMNI 350; Contrast volume: 100 ml; Contrast route: INTRAVENOUS (IV); COMPARISON: CT chest w con* [id number] 10/14/2024 1:58 PM RADIATION DOSE METRICS: Total DLP (mGy-cm): 616.7 FINDINGS: Lungs: Diffuse emphysematous disease. Status post left upper lobectomy. There are a few scattered bilateral pulmonary nodules measuring less than 6 mm. Some of the previously noted nodules have resolved. The left lower lobe 4.5 mm nodule is noted to have a more solid component on the current study. Pleural spaces: No pleural effusion or pneumothorax noted. Heart: There is no cardiomegaly. There is no pericardial effusion. Lymph nodes: Stable indeterminate mediastinal and hilar nodes. 11 mm subcarinal node. Vasculature: No pulmonary emboli. There is no aortic dissection. There is no aortic aneurysm. There is atherosclerotic disease. Bones/joints: No acute osseous abnormality. Old healed rib fractures. There is degenerative disease of the spine. Status post median sternotomy Soft tissues: Unremarkable. years and 4 years. (Reference: Roge) References: Roge Chino, et al. Guidelines for Management of Incidental Pulmonary Nodules Detected on CT Images: From the Fleischner Society 2017. Radiology. 2017;284(1):228-243. COMMENTS: The presence of pulmonary emphysema on CT is an independent risk factor for lung cancer. In the absence of a history or active diagnosis of lung cancer, it is recommended that this patient with emphysema be evaluated for enrollment in a low dose CT lung cancer screening program. REFERENCES: Roge Chino, et al. Guidelines for Management of Incidental Pulmonary Nodules Detected on CT Images: From the Fleischner Society 2017. Radiology. 2017;284(1):228-243. PROCEDURE INFORMATION: Exam: CT Abdomen And Pelvis With Contrast Exam date and time: 01/08/2025 2:13 PM Age: 69 years old Clinical indication: Condition or disease; Lung condition and disease; Cancer of the lung; Unspecified; Prior surgery; Surgery date: 6+ months; Surgery type: Left lung, heart; Additional info: Compare to previous; Lung cancer TECHNIQUE: Imaging protocol: Computed tomography of the abdomen and pelvis with contrast. Radiation optimization: All CT scans at this facility use at least one of these dose optimization techniques: automated exposure control; mA and/or kV adjustment per patient size (includes targeted exams where dose is matched to clinical indication); or iterative reconstruction. Contrast material: OMNI 350; Contrast volume: 100 ml; Contrast route: INTRAVENOUS (IV); COMPARISON: PT PET skull to thigh SUBS [id number] 03/31/2024 10:43 AM RADIATION DOSE METRICS: Total DLP (mGy-cm): 616.7 FINDINGS: Liver: The liver is unremarkable. Gallbladder and biliary ducts: No intrahepatic or extrahepatic biliary ductal dilatation. The gallbladder is unremarkable with no radioopaque stone. Pancreas: Pancreas is unremarkable. No ductal dilation or peripancreatic inflammation. Spleen: The spleen is unremarkable. Adrenal glands: Adrenal glands are unremarkable. Kidneys and ureters: No hydronephrosis or nephrolithiasis. Bilateral simple renal cysts are present, as well as other subcentimeter hypodensities which are too small to characterize. Stomach and bowel: The stomach is markedly distended contrast and food. Small and large bowel are normal in caliber without evidence of obstruction. Jejunum is noted to be in the right. Moderate amount of feces in the colon. Appendix: No evidence of appendicitis. Intraperitoneal space: No free intraperitoneal air. No fluid collection. Vasculature: There is no aortic aneurysm. There is atherosclerotic disease. Origins of the celiac, SMA, JANIYA and renal arteries are patent. Lymph nodes: No pathologically enlarged lymph nodes (by short axis size criteria). Urinary bladder: Bladder is distended with contrast. Reproductive: Visualized portions of the male reproductive tract are unremarkable for patient's age, though routine CT is limited in this regard. Bones/joints: No acute osseous abnormality. There is degenerative disease of the spine. Soft tissues: Bilateral fat containing inguinal hernia. CT/CT chest abdpel w/*[id number] IMPRESSION: 1. No acute findings. 2. Scattered bilateral pulmonary nodules with interval change in the left lower lobe 4.5 mm nodule which is noted to have a more solid component on the current study, some of the previously noted nodules have resolved. PET/CT imaging may not be of value due to the small size of the nodules. Recommend CT Chest at 3-6 months. If stable, then consider CT Chest at 2 IMPRESSION: No acute findings. COMMENTS: Consistent with the [employer]'s Incidental Findings Committee white paper (J Am Bruce Radiol 2018): Any incidental renal lesion less than 1 cm or classified as too small to characterize, or any incidental cystic renal lesion characterized as simple-appearing, is likely benign. No follow-up imaging is recommended for these lesions per consensus recommendations based on imaging criteria.
[2025-01-08] MEDS: iohexol 350 mg/mL 500 mL Btl (per mL) IV (14:27)
== END 2025-01-08 23:59 | disposition home or self-care (01) ==
LOC: RAD 13:12 → ONCMED 01-11 09:57
PROVIDERS: PCP Nurse Practitioner Family; Visit Provider Internal Medicine
DX: C34.12 Malignant neoplasm of upper lobe, left bronchus or lung (principal); Z53.9 Procedure and treatment not carried out, unspecified reason
CPT/HCPCS: 71260; 74177; 82565; 84520

== ENCOUNTER 2025-01-14 12:10 | Oncology outpatient (recurring) (ONCR) | payer MEDICARE, MEDICAID, SELFPAY ==
[2025-01-14 13:03] LABS: Basophils # 0.1 10^3/uL (0.0-0.1); Eosinophils # 0.4 10^3/uL (0.0-0.8); Eosinophils % 6.2 %; Hematocrit 46.2 % (37-53); Lymphocytes % 29.3 %; Mean Corpuscular Hemoglobin 30.7 pg (27-33); Mean Corpuscular Volume 90.4 fl (82-101); Mean Platelet Volume 11.7 fL (7.4-10.4); Monocytes # 0.7 10^3/uL (0.2-0.9); Monocytes % 10.6 %; Neutrophils # 3.64 10^3/uL (1.8-7.7); Neutrophils % 52.8 %; Nucleated Red Blood Cells % 0 %; Platelet Count 241 10^3/cmm (157-399); Red Blood Count 5.11 10^6/uL (3.85-5.65); Red Cell Distribution Width 12.6 % (12.1-15.1)
[2025-01-14 13:12] LABS: Alanine Aminotransferase 22 U/L (0-41); Albumin Level 4.5 g/dL (3.5-5.2); Alkaline Phosphatase 99 U/L (40-130); Anion Gap 12.8 (5-19); Aspartate Amino Transferase 27 U/L (0-40); Blood Urea Nitrogen 16 mg/dL (8-23); Calcium 9.3 mg/dL (8.5-10.5); Carbon Dioxide 25 mmol/L (22-29); Chloride 104 mmol/L (98-107); Globulin 3.1 g/dL (1.3-4.6); Glomerular Filtration Rate 84.2 mL/min (90-130); Glucose 101 mg/dL (65-115); Lactate Dehydrogenase 179 U/L (135-225); Osmolality Calculated 285 mOsm/kg (285-295); Potassium 4.8 mmol/L (3.5-5.1); Sodium 137 mmol/L (136-145); Total Bilirubin 0.4 mg/dL (0.15-1.2); Total Protein 7.6 g/dL (6.6-8.7)
== END 2025-02-08 23:59 | disposition home or self-care (01) ==
PROVIDERS: PCP Nurse Practitioner Family; Visit Provider Internal Medicine
DX: Z08 Encounter for follow-up examination after completed treatment for malignant neoplasm (principal); Z85.118 Personal history of other malignant neoplasm of bronchus and lung; F17.210 Nicotine dependence, cigarettes, uncomplicated; Z95.1 Presence of aortocoronary bypass graft; Z71.6 Tobacco abuse counseling; Z90.2 Acquired absence of lung [part of]; R91.8 Other nonspecific abnormal finding of lung field
CPT/HCPCS: 36415; 80053; 83615; 85025; 99213

== ENCOUNTER → 2025-03-31 12:05 | Outpatient (BNVA) | payer MEDICARE, MEDICAID, SELFPAY | PROVIDERS: PCP Nurse Practitioner Family; Visit Provider Nurse Practitioner Family | DX: I10 Essential (primary) hypertension (principal) | CPT/HCPCS: 80053; 80061 ==

== ENCOUNTER 2025-04-22 12:30 | Oncology outpatient (recurring) (ONCR) | payer MEDICAID, OTHER, SELFPAY ==
--- NOTE | 2025-04-19 12:30 | CT_ITS ---
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 Sagittal and coronal reformats. All CT scans at [facility] use at least one of these dose optimization techniques: automated exposure control; mA and/or kV adjustment per patient size (includes targeted exams where dose is matched to clinical indication); or iterative reconstruction. CONTRAST: Omnipaque 350; 100 mL IV. DLP: 392.98 mGy.cm COMPARISON: 01/08/2025, 10/14/2024, PET/CT 03/31/[address]: Status post LEFT upper lobectomy. Diffuse emphysematous changes and centrilobular emphysema. No new or increasing size of pulmonary nodules. Postsurgical changes in the LEFT lobe from the lobectomy. No mass or pneumonia. The nodules previously described are not apparent on today's CT suggesting these are probably postinflammatory. Heart is normal size. No pericardial or pleural effusions. No change in appearance of the mediastinal or hilar lymph nodes. RIGHT hilar lymph node is the largest measuring 11 mm. No pathologically enlarged lymph nodes. There are a few small RIGHT axillary lymph nodes which are stable. Prior CABG. Atherosclerosis aorta. No destructive rib lesions identified. Abdomen CT: Distal esophageal wall thickening. There is circumferential thickening near the GE junction extending into the cardia. Gastric wall thickening measuring up to 18 mm. Liver, gallbladder, spleen, adrenal glands and pancreas are negative. Moderate atherosclerotic plaque thoracic aorta. Calcification at the origin of the celiac axis and SMA and renal arteries with components of mild stenosis. No renal obstruction. Tiny cortical cyst RIGHT kidney and too small to characterize hypodensities. There are a few nonobstructing calcifications. No ascites. No adenopathy. Osseous structures: No destructive bone lesions. CT/CT chest abd w con*[id number] IMPRESSION: 1. Status post LEFT upper lobectomy. 2. Majority of the previously described pulmonary nodules have resolved. There are no new nodules or nodules increasing in size that are suspicious for malig eva. 3. Chronic emphysema. 4. Atherosclerosis thoracic and abdominal aorta. Atherosclerotic plaque extend s into the mesenteric arteries. 5. No mediastinal or hilar pathologically enlarged lymph nodes. 6. There is marked circumferential thickening at the GE junction with gastric wall measuring up to 18 mm. Recommend follow-up endoscopy to exclude gastric ne oplasm. Gastritis may appear similar. 7. No adrenal mass.
[2025-04-19] MEDS: iohexol 350 mg/mL 500 mL Btl (per mL) PO (12:45)
[2025-04-19] MEDS: iohexol 350 mg/mL 500 mL Btl (per mL) IV (12:51)
[2025-04-22 12:45] LABS: Basophils # 0.1 10^3/uL (0.0-0.1); Basophils % 1.3 %; Eosinophils # 0.6 10^3/uL (0.0-0.8); Eosinophils % 7.7 %; Hematocrit 41.7 % (37-53); Lymphocytes # 2.6 10^3/uL (0.8-4.8); Mean Corpuscular HGB Conc 34.1 g/dL (30-55); Mean Corpuscular Hemoglobin 31.1 pg (27-33); Mean Corpuscular Volume 91.2 fl (82-101); Mean Platelet Volume 11.7 fL (7.4-10.4); Monocytes # 0.9 10^3/uL (0.2-0.9); Monocytes % 11.8 %; Neutrophils # 3.59 10^3/uL (1.8-7.7); Neutrophils % 46.1 %; Nucleated Red Blood Cells % 0 %; Platelet Count 206 10^3/cmm (157-399); Red Blood Count 4.57 10^6/uL (3.85-5.65); Red Cell Distribution Width 12.7 % (12.1-15.1); White Blood Count 7.79 10^3/uL (3.29-11.43)
[2025-04-22 13:04] LABS: Erythrocyte Sedimentation Rate 9 mm/hr (0-10)
[2025-04-22 13:19] LABS: Alanine Aminotransferase 20 U/L (0-41); Albumin Level 4.1 g/dL (3.5-5.2); Alkaline Phosphatase 82 U/L (40-130); Anion Gap 15.1 (5-19); Aspartate Amino Transferase 27 U/L (0-40); Blood Urea Nitrogen 16 mg/dL (8-23); Calcium 8.9 mg/dL (8.5-10.5); Carbon Dioxide 21 mmol/L (22-29); Chloride 108 mmol/L (98-107); Globulin 2.8 g/dL (1.3-4.6); Glomerular Filtration Rate 84.2 mL/min (90-130); Glucose 87 mg/dL (65-115); Lactate Dehydrogenase 176 U/L (135-225); Osmolality Calculated 291 mOsm/kg (285-295); Potassium 4.1 mmol/L (3.5-5.1); Sodium 140 mmol/L (136-145); Total Bilirubin 0.4 mg/dL (0.15-1.2); Total Protein 6.9 g/dL (6.6-8.7)
== END 2025-05-10 23:59 | disposition home or self-care (01) ==
PROVIDERS: PCP Nurse Practitioner Family; Visit Provider Internal Medicine
DX: Z53.9 Procedure and treatment not carried out, unspecified reason (principal); Z08 Encounter for follow-up examination after completed treatment for malignant neoplasm; Z85.118 Personal history of other malignant neoplasm of bronchus and lung; I25.10 Atherosclerotic heart disease of native coronary artery without angina pectoris; Z71.6 Tobacco abuse counseling; F17.210 Nicotine dependence, cigarettes, uncomplicated; K31.89 Other diseases of stomach and duodenum
CPT/HCPCS: 71260; 74160; 80053; 83615; 85025; 85651; 99213

== ENCOUNTER → 2025-04-27 08:43 | Outpatient (BNVA) | payer OTHER, MEDICAID, SELFPAY | PROVIDERS: PCP Nurse Practitioner Family; Visit Provider Surgery | DX: C34.12 Malignant neoplasm of upper lobe, left bronchus or lung (principal); R93.89 Abnormal findings on diagnostic imaging of other specified body structures | CPT/HCPCS: 99213 ==

== ENCOUNTER 2025-05-13 08:05 | Day surgery (SDC) | payer OTHER, MEDICAID, SELFPAY ==
[2025-05-13 08:26] VITALS: BP 132/87; PULSE 59; RESP 18; TEMP 36.4; O2SAT 98; BMI 23.6
--- NOTE | 2025-05-13 08:41 | W.PM.OPSUD ---
Surgery/Procedure H&P Update DATE OF PROCEDURE: May 13, 2025 DATE H&P PERFORMED: 04/27/25 H&P UPDATE INFORMATION: I have reviewed H&P completed within last 30 days, I have examined patient prior to procedure, No changes to prior documentation, Changes to prior documentation as noted here and Risks and benefits of the procedure reviewed PLANNED PROCEDURE: Operation Date: 05/13/25 10:25 Proposed Procedures p EGD with Biopsy [id number], C34.12(Not Applicable) - Ricardo Thompson MD
--- NOTE | 2025-05-13 09:27 | ANES.PREANE2 ---
Pre-Anesthetic Assessment Height/Weight: Height 1.73 m Weight 70.307 kg Temp Pulse Resp BP Pulse Ox O2 Del Method 97.6 F 59 L 18 132/87 98 Room Air 05/13/25 08:26 05/13/25 08:26 05/13/25 08:26 05/13/25 08:26 05/13/25 08:26 05/13/25 08:26 Operation Date: 05/13/25 10:25 Proposed Procedures p EGD with Biopsy [id number], C34.12(Not Applicable) - Ricardo Thompson MD Familial anesthetic complications: None Was Beta Miguel Angel taken within 24 hours: Yes Was Clonidine taken within 24 hours: N/A Last intake: Intake Last Liquid Date 05/12/25 Last Liquid Time 22:00 Last Solid Date 05/12/25 Last Solid Time 19:00 Social Tobacco and No alcohol 1 pack(s) per day 55 pack years Exam alert, oriented x 3, clear to auscultation bilaterally (Diminished) and regular rate & rhythm Airway Submandibular: within normal limits Cervical ROM: within normal limits Mallampati: Class II Comments: Comments: Edentulous History/ROS No significant history except as noted and No significant complaints Pulmonary Chronic Obstructive Pulmonary Disease, Cough and Exertional Dyspnea Squamous cell carcinoma CV/HEM Anemia, Coronary Artery Disease, Hypertension and Murmur CABG x5 in 2022, last saw CT surgeon 1-1.5 years ago, no changes in medication CONCLUSIONS 1. Normal left ventricular size, systolic function and wall thickness, with no regional wall motion abnormalities. Left ventricular ejection fraction is estimated at 70 %. Normal diastolic function. 2. Normal right ventricular size and systolic function. 3. No significant valvular abnormality. 4. No significant change when compared to study dated 08/24/2022. None reported Hepatic None reported GI Gastroesophageal Reflux Disease (None this morning) and Hiatal Hernia Metabolic Hyperlipidemia [facility] None reported Neuropsych None reported Anesthetic Plan ASA status: 4 Anesthesia: Anesthesia Evaluation, General and MAC Risk of > 500 ml blood loss (7ml/kg in children): No Medications/Allergies Home Medications ?Medication ?Instructions ?Recorded ?Confirmed ?Last Taken ?Type melatonin 10 mg capsule 10 mg PO .HS 09/13/22 05/13/25 05/12/25 History aspirin 325 mg tablet 325 mg PO DAILY #90 tabs 10/29/22 05/13/2525 Rx albuterol sulfate 90 mcg/actuation See Rx Instructions .Route 10/07/23 05/13/25 05/12/25 Rx aerosol inhaler .COMPLEX #7 ea nitroglycerin 0.4 mg sublingual 0.4 mg sublingual Q5M PRN Chest 01/31/24 05/13/25 Unknown Rx tablet Pain 30 days #30 tabs multivitamin 1 tab PO DAILY 06/30/24 05/13/25 05/12/25 History atorvastatin 80 mg tablet See Rx Instructions .Route 03/31/25 05/13/25 05/12/25 Rx .COMPLEX #90 tabs carvedilol 3.125 mg tablet See Rx Instructions .Route 03/31/25 05/13/25 05/12/25 Rx .COMPLEX #180 tabs losartan 25 mg tablet See Rx Instructions .Route 03/31/25 05/13/25 05/12/25 Rx .COMPLEX #90 tabs tiotropium 2.5 mcg-olodaterol 2.5 See Rx Instructions .Route 04/26/25 05/13/25 05/12/25 Rx mcg/actuation mist for inhalation .COMPLEX #4 grams (Stiolto Respimat) Allergies Allergy/AdvReac Type Severity Reaction Status Date / Time procaine (From Novocain) Allergy ALGY-Hives Verified 05/13/25 08:25 Current Medications Generic Name Dose Route Start Last Admin Trade Name Freq PRN Reason Stop Dose Admin Sodium Chloride 1,000 mls @ 15 mls/hr 05/13/25 08:21 05/13/25 08:32 Sodium Chloride 0.9% IV 05/14/25 08:20 15 mls/hr .Q24H PRN Administration COLONOSCOPY FLUIDS PFSH Anesthesia Medical History COPD (chronic obstructive pulmonary disease) Pleuritic chest pain Insomnia Atherosclerosis of coronary artery Smoker History of facial trauma Intervertebral disc extrusion Cervical radiculopathy History of colon polyps Surgical History History of lobectomy of lung (09/11/23) Thoracotomy with left upper lobectomy H/O heart bypass surgery pt had 5 bypasses. pt SX was 02/17/23 pt was discharged on 01/10/2023 H/O shoulder surgery (2017) History of colonoscopy with polypectomy (01/28/20) Repeat in 5 years since he had polyps on his colonoscopy from last year Family History Mother Diabetes Father CAD (coronary artery disease) Stroke Sister Thyroid disease Diabetes Social History Smoking and tobacco/nicotine status: current every day tobacco/nicotine user (is interested in quitting) cigarettes Packs smoked per day: 1 Years cigarettes smoked: 50 [ Other cigarette details: He previously smoked 2 1/2 PPD.] Alcohol intake: never Substance/Drug Use: never Adopted: No Lives independently: Yes Household members: spouse Housing: House Marital status: Number of children: 2 service: No Current occupational status: unemployed Pets and animals: Yes Pets & animals: dog(s) Data Anesthesia Cardiac Studies: Echocardiogram 11/09/22 Sestamibi Stress Test (Cardiology) 10/26/22 Holter Monitor 07/28/21
[2025-05-13 10:07] VITALS: BP 98/53; PULSE 44; RESP 18; TEMP 36.2; O2SAT 97
[2025-05-13 10:18] VITALS: BP 111/59; PULSE 46; RESP 19; TEMP 36.3; O2SAT 97
--- NOTE | 2025-05-13 10:41 | ANE.PACU2 ---
Inpatient post-anesthesia follow up: Airway intact: Yes Vital signs: Temperature 97.4 F Pulse Rate 46 Respiratory Rate 19 Blood Pressure 111/59 Pulse Oximetry 97 Oxygen Delivery Me thod Room Air Oxygen Flow Rate Fraction of Inspir ed Oxygen Hydration adequate: Yes Nausea and vomiting: No Pain level: 1 Mental status: Baseline
== END 2025-05-13 10:41 | disposition home or self-care (01) ==
PROVIDERS: PCP Nurse Practitioner Family; Visit Provider Surgery
PROC: 0DJ08ZZ Inspection of Upper Intestinal Tract, Via Natural or Artificial Opening Endoscopic (ICD-10-PCS; principal; 2025-05-13 10:25)
DX: K22.70 Barrett's esophagus without dysplasia (principal); K29.80 Duodenitis without bleeding; K44.9 Diaphragmatic hernia without obstruction or gangrene; K29.70 Gastritis, unspecified, without bleeding; C34.12 Malignant neoplasm of upper lobe, left bronchus or lung; F17.210 Nicotine dependence, cigarettes, uncomplicated; J44.9 Chronic obstructive pulmonary disease, unspecified; I25.10 Atherosclerotic heart disease of native coronary artery without angina pectoris; I10 Essential (primary) hypertension; Z95.1 Presence of aortocoronary bypass graft; K21.9 Gastro-esophageal reflux disease without esophagitis; E78.5 Hyperlipidemia, unspecified; Z79.899 Other long term (current) drug therapy; Z88.4 Allergy status to anesthetic agent; Z86.0100 Personal history of colon polyps, unspecified; Z90.2 Acquired absence of lung [part of]; Z79.82 Long term (current) use of aspirin
CPT/HCPCS: 43239; 88305; 88342; J2704; J7030; J7799

== ENCOUNTER → 2025-06-01 13:12 | Outpatient (BNVA) | payer OTHER, MEDICAID, SELFPAY | PROVIDERS: PCP Nurse Practitioner Family; Visit Provider Surgery | DX: Z09 Encounter for follow-up examination after completed treatment for conditions other than malignant neoplasm (principal) | CPT/HCPCS: 99213 ==

== ENCOUNTER 2025-06-23 10:05 | Oncology outpatient (recurring) (ONCR) | payer OTHER, MEDICAID, SELFPAY ==
[2025-06-23 10:25] LABS: Hematocrit 41.3 % (37-53); Hemoglobin 14.40 g/dL (11.27-16.99); Mean Corpuscular HGB Conc 34.9 g/dL (30-55); Mean Corpuscular Hemoglobin 31.9 pg (27-33); Mean Corpuscular Volume 91.6 fl (82-101); Nucleated Red Blood Cells % 0 %; Platelet Count 190 10^3/cmm (157-399); Red Blood Count 4.51 10^6/uL (3.85-5.65); White Blood Count 8.88 10^3/uL (3.29-11.43)
[2025-06-23 10:45] LABS: Alanine Aminotransferase 18 U/L (0-41); Albumin Level 4.2 g/dL (3.5-5.2); Alkaline Phosphatase 89 U/L (40-130); Anion Gap 14.4 (5-19); Aspartate Amino Transferase 23 U/L (0-40); Blood Urea Nitrogen 24 mg/dL (8-23); Calcium 9.2 mg/dL (8.5-10.5); Carbon Dioxide 24 mmol/L (22-29); Chloride 106 mmol/L (98-107); Creatinine Clr Calc Pharmacy 63.5812; Globulin 3.2 g/dL (1.3-4.6); Glucose 116 mg/dL (65-115); Osmolality Calculated 295 mOsm/kg (285-295); Potassium 4.4 mmol/L (3.5-5.1); Sodium 140 mmol/L (136-145); Total Protein 7.4 g/dL (6.6-8.7)
== END 2025-07-11 23:59 | disposition home or self-care (01) ==
PROVIDERS: PCP Nurse Practitioner Family; Visit Provider Internal Medicine
DX: C34.12 Malignant neoplasm of upper lobe, left bronchus or lung (principal); Z98.890 Other specified postprocedural states; F17.210 Nicotine dependence, cigarettes, uncomplicated; Z79.899 Other long term (current) drug therapy; I25.10 Atherosclerotic heart disease of native coronary artery without angina pectoris
CPT/HCPCS: 36415; 80053; 83615; 85025; 99214

== ENCOUNTER 2025-07-16 10:44 | Outpatient (CLI) | payer OTHER, MEDICAID, SELFPAY ==
[2025-07-16] MEDS: iohexol 350 mg/mL 500 mL Btl (per mL) IV (11:44)
[2025-07-16] MEDS: iohexol 350 mg/mL 500 mL Btl (per mL) PO (11:44)
--- NOTE | 2025-07-16 13:00 | CTR_ITS ---
PROCEDURE INFORMATION: Exam: CT Chest With Contrast; Diagnostic Exam date and time: 07/16/2025 11:34 AM Age: 69 years old Clinical indication: Condition or disease; Other: Squamous cell carcinoma of left lung; Lung condition and disease; Cancer of the lung; Unspecified; Prior surgery; Surgery date: 6+ months; Surgery type: Cabg x5, left lung lobectomy; Additional info: Surveillance TECHNIQUE: Imaging protocol: Diagnostic computed tomography of the chest with contrast. Radiation optimization: All CT scans at this facility use at least one of these dose optimization techniques: automated exposure control; mA and/or kV adjustment per patient size (includes targeted exams where dose is matched to clinical indication); or iterative reconstruction. Contrast material: OMNI 350; Contrast volume: 100 ml; Contrast route: INTRAVENOUS (IV); COMPARISON: CT chest abd w con*[id number] 04/19/2025 12:49 PM RADIATION DOSE METRICS: Total DLP (mGy-cm): 432.46 FINDINGS: Lungs: Prior left upper lobe lobectomy. Linear scarring in the left lower lobe. Mild bilateral emphysematous changes. Pleural spaces: Unremarkable. No pneumothorax. No pleural effusion. Heart: Unremarkable. No cardiomegaly. No pericardial effusion. Coronary arteries: Coronary calcifications are seen. Lymph nodes: Stable shotty mediastinal lymph nodes. Vasculature: Mild calcified atherosclerotic changes are seen in the thoracic aorta. Bones/joints: Post sternotomy changes are seen. Mild diffuse thoracic spine degenerative changes. Soft tissues: Unremarkable. COMMENTS: The presence of pulmonary emphysema on CT is an independent risk factor for lung cancer. In the absence of a history or active diagnosis of lung cancer, it is recommended that this patient with emphysema be evaluated for enrollment in a low dose CT lung cancer screening program. PROCEDURE INFORMATION: Exam: CT Abdomen With Contrast Exam date and time: 07/16/2025 11:34 AM Age: 69 years old Clinical indication: Condition or disease; Other: Squamous cell carcinoma of left lung; Lung condition and disease; Cancer of the lung; Unspecified; Prior surgery; Surgery date: 6+ months; Surgery type: Cabg x5, left lung lobectomy; Additional info: Surveillance TECHNIQUE: Imaging protocol: Computed tomography of the abdomen with contrast. Radiation optimization: All CT scans at this facility use at least one of these dose optimization techniques: automated exposure control; mA and/or kV adjustment per patient size (includes targeted exams where dose is matched to clinical indication); or iterative reconstruction. Contrast material: OMNI 350; Contrast volume: 100 ml; Contrast route: INTRAVENOUS (IV); COMPARISON: CT chest abd w con*[id number] 04/19/2025 12:49 PM RADIATION DOSE METRICS: Total DLP (mGy-cm): 432.46 FINDINGS: Liver: Normal. No mass. Gallbladder and biliary ducts: Normal. No calcified stones. No ductal dilation. Pancreas: Normal. No ductal dilation. Spleen: Normal. No splenomegaly. Adrenal glands: Normal. No mass. Kidneys: Right renal calculi. Largest measures 3 mm. Stable right renal hypodensities. Stomach and bowel: Previously described gastric wall thickening at GE junction is not evident on today's study. Intraperitoneal space: Unremarkable. No free air. No significant fluid collection. Vasculature: Mild calcified atherosclerotic changes are seen throughout the abdominal aorta. Lymph nodes: Unremarkable. No enlarged lymph nodes. Bones/joints: Unremarkable. No acute fracture. No dislocation. Soft tissues: Unremarkable. CT/CT chest abd w con*[id number] IMPRESSION: 1. No recurrent disease. 2. Coronary calcifications. IMPRESSION: 1. No abdominal metastases. 2. Right renal calculi. Largest measures 3 mm.
== END 2025-07-16 10:45 | disposition home or self-care (01) ==
LOC: RAD 10:45
PROVIDERS: PCP Nurse Practitioner Family; Visit Provider Nurse Practitioner Family
DX: C34.92 Malignant neoplasm of unspecified part of left bronchus or lung (principal); I25.10 Atherosclerotic heart disease of native coronary artery without angina pectoris; N20.0 Calculus of kidney; N28.89 Other specified disorders of kidney and ureter
CPT/HCPCS: 71260; 74160

== ENCOUNTER 2025-07-21 10:19 | Oncology outpatient (recurring) (ONCR) | payer OTHER, MEDICAID, SELFPAY ==
[2025-07-21 10:48] LABS: Hematocrit 44.5 % (37-53); Hemoglobin 15.30 g/dL (11.27-16.99); Mean Corpuscular HGB Conc 34.4 g/dL (30-55); Mean Corpuscular Hemoglobin 31.1 pg (27-33); Mean Corpuscular Volume 90.4 fl (82-101); Nucleated Red Blood Cells % 0 %; Platelet Count 210 10^3/cmm (157-399); Red Blood Count 4.92 10^6/uL (3.85-5.65); White Blood Count 7.73 10^3/uL (3.29-11.43)
[2025-07-21 11:02] LABS: Alanine Aminotransferase 17 U/L (0-41); Albumin Level 4.1 g/dL (3.5-5.2); Alkaline Phosphatase 87 U/L (40-130); Anion Gap 13.5 (5-19); Aspartate Amino Transferase 23 U/L (0-40); Blood Urea Nitrogen 12 mg/dL (8-23); Calcium 9.3 mg/dL (8.5-10.5); Carbon Dioxide 23 mmol/L (22-29); Chloride 105 mmol/L (98-107); Globulin 3.4 g/dL (1.3-4.6); Glucose 129 mg/dL (65-115); Osmolality Calculated 285 mOsm/kg (285-295); Potassium 4.5 mmol/L (3.5-5.1); Sodium 137 mmol/L (136-145); Total Protein 7.5 g/dL (6.6-8.7)
== END 2025-08-10 23:59 | disposition home or self-care (01) ==
PROVIDERS: Nurse Practitioner Family; PCP Nurse Practitioner Family; Visit Provider Internal Medicine
DX: Z08 Encounter for follow-up examination after completed treatment for malignant neoplasm (principal); Z85.118 Personal history of other malignant neoplasm of bronchus and lung; F17.210 Nicotine dependence, cigarettes, uncomplicated; K22.70 Barrett's esophagus without dysplasia; Z79.899 Other long term (current) drug therapy; Z71.6 Tobacco abuse counseling
CPT/HCPCS: 36415; 80053; 83615; 85025; 99213

== ENCOUNTER → 2025-11-01 15:45 | Outpatient (BNVA) | payer OTHER, MEDICAID, SELFPAY | PROVIDERS: PCP Nurse Practitioner Family; Visit Provider Nurse Practitioner Family | DX: R68.89 Other general symptoms and signs (principal) | CPT/HCPCS: 87400; 87426 ==